=== PATIENT | female | born 1955 | race Caucasian/White ===

== ENCOUNTER 2022-01-06 09:00 | Outpatient (RCR) | payer MEDICARE, OTHER, SELFPAY | END 2022-01-06 10:23 | disposition home or self-care (01) | PROVIDERS: PCP Family Medicine; Visit Provider Family Medicine | DX: N81.10 Cystocele, unspecified (principal) | CPT/HCPCS: 97110; 97112; 97535 ==

== ENCOUNTER 2022-11-22 14:07 | Outpatient (CLI) | payer MEDICARE, OTHER, SELFPAY ==
--- NOTE | 2022-11-22 08:41 | W.ANESCHARGE ---
Anesthesia Charges Start Date/Time Anesthesia Start Date: 11/22/22 Anesthesia Start Time: 15:04 Stop Date/Time Anesthesia Stop Date: 11/22/22 Anesthesia Stop Time: 15:27
--- NOTE | 2022-11-22 15:30 | W.ANESCHARGE ---
Anesthesia Charges Start Date/Time Anesthesia Start Date: 11/22/22 Anesthesia Start Time: 15:04 Stop Date/Time Anesthesia Stop Date: 11/22/22 Anesthesia Stop Time: 15:27
== END 2022-11-22 14:08 | disposition home or self-care (01) ==
LOC: OP CLINIC 14:07
PROVIDERS: PCP Physician Assistant Medical; Visit Provider Internal Medicine Gastroenterology
DX: Z12.11 Encounter for screening for malignant neoplasm of colon (principal); K57.30 Diverticulosis of large intestine without perforation or abscess without bleeding; Z86.010 Personal history of colon polyps
CPT/HCPCS: 00811; 00812; 45378; J2704

== ENCOUNTER 2022-11-29 09:15 | Outpatient (RCR) | payer MEDICARE, OTHER, SELFPAY ==
--- NOTE | 2022-09-22 12:47 | PT.OPEX ---
PT [facility] PT [facility] Outpatient Eval Start: 09/21/22 09:04 Freq: Status: Active Protocol: Document 09/21/22 08:45 YAYO (Rec: 09/22/22 12:46 YAYO [id number]) E-signed By Mary Jo Archer PT Physical Therapy Outpatient Evaluation Insurance Information Recert Due Date 12/14/22 Insurance Name Medicare B,[employer] [facility] LUMBAR HERNIATED DISC M51.26 Treating Diagnosis RIGHT GLUT PAIN M76.01 SCIATICA M54[address] BEAR VO Subjective Subjective PATIENT ARRIVES TODAY STATING, I HAD TO LAY DOWN TO GET HERE B/C I CAN'T SIT AT ALL WITHOUT A KNIFE STABBING ME IN THE BUTT. PATIENT DENIES ANY FALLS OR PREVIOUS TRAUMA. SHE REPORTS REACHING TO PLUG SOMETHING INTO AN OUTLET AND EXPERIENCING IMMEDIATE PAIN. SHE ALSO REPORTS HAVING HAD A SIMILAR ISSUE ROUGHLY 8 YRS AGO AND UNDERWENT AN EXTENSION PROGRAM TO RESOLVE HER SYMPTOMS TAKING ~3 MO. Pain Comments 3 STDG/LYING PRONE->8-10/10 WITH SITTING Date of Last Physician Visit 09/20/22 Current Work Status [employer] Occupation [employer]-> CG AT THE[facility] Preferred Name CARE[employer] Precautions Therapy Limitations/Systems Review Not Limited Objective Other/Pertinent Objective Posture Assessment: DECREASED LORDOTIC CURVATURE/RIGID POSTURING LUMBAR ROM Flexion: MID THIGH W/8/10 PAIN repeated flexion: UNABLE Extension: WFL UNREMARKABLE repeated ext: UNREMARKABLE Right Sidebend: WFL INCREASED DISCOMFORT Left Sidebend: WFL UNREMARKABLE LE MMT :WFL Hip flexion: R 4/5, LEFT 4/5 Hip Extension: RIGHT 4-/5 LEFT 4-/5 (MEASURED IN PRONE) Hip abduction: R/L 4/5 MEASURED STDG knee extension: R/L 4/5 Knee Flexion: R/L 4/5 Dorsiflexion/heel walk: UNREMARKABLE Plantarflexion/toe walk: UNREMARKABLE Great Toe Extension: R/L UNREMARKABLE JOINT MOBILITY/PALPATION: ASSESSED IN PRONE. NO GROSS HYPOMOBILITY SPECIAL TESTS Straight leg raise: R/L (-) Crossed straight leg raise: R/ L (-) Slump test: UNABLE TO ASSESS D /T POSITIONAL PAIN Quadrant test: UNABLE TO ASSESS D/T POSITIONAL PAIN SI/HIP tests: JOSE: (+) R/L FADIR (-) R/L SCOUR (-) R/L Gillet Test: (-) R/L Standing forward bend Test: UNABLE D/T PAIN Gapping and Compression test: UNREMARKABLE TX: PRONE LYING ON 2 PILLOWS UNDER PELVIS PRONE LYING 1 PILLOW UNDER PELVIS X 1MIN PRONE LYING 2 PILLOWS UNDER CHEST X 1MIN PRONE FLAT BLE ALT LE LIFTS X 10 HOLD 3 SEC STDG TRUNK EXT X 10 HOLD 2-3 SEC Assessment Assessment/Impression PATIENT IS A [address] VO REFERRED TO PHYSICAL THERAPY FOLLOWING AND ACUTE BOUT OF LUMBAR RADICULOPATHY THAT IS CONSISTENT WITH THE S/ S OF A HERNIATED DISC. SHE HAS A LIMITED PMHX INCLUDING HYPOTHYROIDISM OSTEOPOROSIS, ASTHMA AND H/O UNCOMPLICATED HNP ~8YRS AGO. SHE LIVES WITH HER SPOUSE IN A 2 STORY HOME WITH NO STEPS TO ENTER BUT >10 STEPS TO ACCESS HER BEDROOM WITH A RAILING. 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 SHE REPORTS REACHING ABOUT 3 WEEKS AGO TO PLUG IN AN OUTLET AND EXPERIENCING IMMEDIATE PAIN IN HER RIGHT GLUTEAL MUSCLE IF SOMETHING WERE STABBING HER WITH A KNIFE. TODAY'S EVALUATION DID NOT FOLLOW THE TYPICAL PRESENTATION OF A HERNIATED DISC WITH NERVE ROOT INVOLVEMENT NOTING PTT AT THE [facility]IGIN AND JUST TO THE RIGHT THE SCIATIC NERVE PASSES. SHE DOES NOT PRESENT WITH RADICULOPATHY TODAY AND I AM UNABLE TO PROVOCATE THE SYMPTOMS THROUGH ANYTHING OTHER THAN DEEP PALPATION AND SITTING. SHE IS UNABLE TO SIT WITHOUT SHIFTING SIGNIFICANTLY TO HER LEFT SIDE AND THEN IT' S STILL QUITE DIFFICULT SHE PREFERS LYING PRONE>SUPINE. SHE REPORTS RESPONDING WELL TO THE SAMMY EXTENSION APPROACH 8 YRS AGO AND DOES HAS BEEN PERFORMING WHAT SHE CAN RECALL SINCE THE INITIAL INCIDENT. SHE DENIES ANY PREVIOUS TRAUMA AND HAS AN MRI SCHEDULED ON TUESDAY MORNING PRIOR TO HER 1PM PHYSICAL THERAPY FOLLOW UP VISIT. WE WENT THROUGH THE PRONE SAMMY PROGRESSION WITH A WRITTEN HEP PROVIDED FOR HER TO CONTINUE BUT THE EXT, ALBEIT DID NOT CHANGE THE SYMPTOMS, SHE DID VERBALIZE THAT SHE FELT GOOD DURING THE PROGRESSION. AT THE CONCLUSION OF THE VISIT, WE TRIED ONCE MORE TO BUILD TOLERANCE TO SITTING USING A PILLOW BUT THIS WAS NOT SUSTAINABLE. WE WILL SEE IF, THROUGH THE REPEATED UNLOADING AND ATTEMPTS TO INFLUENCE THE SYMPTOMS THROUGH EXTENSION FOCUSED EXERCISES, WE CAN PROGRESS HER TO SUPINE OR SEATED WORK. PATIENT VERBALIZED UNDERSTANDING TO ALL SKILLED INSTRUCTION AND AGREEABLE TO POC AND FREQ. SHE IS APPROPRIATE FOR SKILLED PHYSICAL THERAPY TO ADDRESS HER SYMPTOM MGMT, CORE AND BLE STABILIZATION AND STRENGTHENING, WELL FUNCTIONAL MOBILITY Plan of Care Rehabilitation Potential Fair Physical Therapy Goals 1. PATIENT WILL BE IMPROVE HER TOLERANCE FOR SITTING FROM UNABLE TO 10 MIN IN 4-6 WEEKS. 2. PATIENT WILL IMPROVE HER BLE FROM 4- TO 4/5 GLOBALLY TO 4+/5 IN 4/6 WEEKS. 3. PATIENT WILL BE ABLE TO TOLERATE IMPROVE BOTH HER SYMPTOMS TO <3/10 WITH FUNCTIONAL MOBILITY AND TOLERANCE FOR STDG ACTIVITIES IN ORDER FOR HER TO RETURN TO HER JEWELRY CONSULTANT POSITION CG FOR AN ENTIRE SHIFT IN 4-6 WEEKS. 4. PATIENT WILL BE INDEPENDENT WITH HER HEP AND PROGRESSION IN 6-8 WEEKS. Coordination/Communication With Referral Source Treatment Plan/Direct Interventions Gait Training,Heat,Ice/Cold/ Vasopneumatic,Joint Mobilization,Manual Therapy, Therapeutic Activities, Therapeutic Exercises Frequency/Duration 1-2X/WK FOR 6-8 WEEKS Patient Will Be Discharged From Therapy Completion of LTG(s), Independently Progressing Evaluation Billing Untimed Code Treatment Minutes 30 PT Eval No Charge No Complexity High Certification Information Initial Certification Date 09/21/22 Ending Certification Date 12/14/22 Provider Signature Shows Agreement With POC & Medical Necessity Physician Signature & Date Requested Please Sign/Date Here Physician Comment/Change : Physician NPI Number #
== END 2023-03-29 23:59 | disposition home or self-care (01) ==
PROVIDERS: PCP Physician Assistant Medical; Visit Provider Family Medicine
DX: M51.26 Other intervertebral disc displacement, lumbar region (principal); M76.01 Gluteal tendinitis, right hip; M54.30 Sciatica, unspecified side; Z51.89 Encounter for other specified aftercare
CPT/HCPCS: 97110; 97140; 97163

== ENCOUNTER 2023-12-27 07:30 | Outpatient (RCR) | payer MEDICARE, OTHER, SELFPAY | END 2024-04-25 23:59 | disposition home or self-care (01) | PROVIDERS: PCP Physician Assistant Medical; Visit Provider Student in an Organized Health Care Education/Training Program | DX: S39.012A Strain of muscle, fascia and tendon of lower back, initial encounter (principal); R53.1 Weakness; Z51.89 Encounter for other specified aftercare | CPT/HCPCS: 97110; 97140; 97162 ==

== ENCOUNTER 2024-05-26 09:16 | Emergency (ER) | payer MEDICARE, OTHER, SELFPAY ==
--- OUTSIDE RECORDS SUMMARY | 2024-05-26 09:18 | XMS_ITS | Continuity of Care Document ---
Author Name [facility] Address Unknown Organization Unknown Address Unknown Procedures FILTER APPLIED:Only known Procedures with Onset Date within the last 5 years Procedure Date Procedure Provider Additional Inform ation Status MANUAL THERAPY 1/> REGIONS (62233) Completed THERAPEUTIC EXERCISES (48646) Completed PT EVAL HIGH COMPLEX 45 MIN (07710) Completed Encounters FILTER APPLIED:Only known Encounters with Admission Date within the last 5 years Encounter Location Admission Discharge Billing Code [facility]
--- OUTSIDE RECORDS SUMMARY | 2024-05-26 09:19 | XMS_ITS | Clinical Summary ---
Author Organization [facility] Address [address] [place] [address] Care Team Providers Care Rack Worker Name Role Phone Ginger Chow PA-C Primary Care Provider [phone] Source Comments You are receiving this document as you are listed as the primary care provider,follow-up provider, or the patient has been referred to you for consultation.This is in compliance with the Medicare and[facility] EHR Incentive Program,which states Providers who transition their patient to another setting of careor provider of care or refers their patient to another provider of care shouldprovide summary care record for each transition of care or referral. [facility] Medications No known medications Active Problems Problem Noted Date Diagnosed Date Mechanical low back pain 08/23/2017 Resolved Problems Problem Noted Date Diagnosed Date Resolved Date Low back pain 02/03/2017 08/23/2017 Social History Tobacco Use Types Packs/Day Years Used Date Smoking Tobacco: Never Assessed Sex and Gender Information Value Date Recorded Sex Assigned at Not on file Gender Identity Not on file Sexual Orientation Not on file Plan of Treatment Health Maintenance Due Date Last Done Comments Colon Cancer Screening Plan Due 1955 Hep C Screening (Preventive Services) 1955 Medicare Annual Wellness Visit 1955 Mammogram 1955 DTaP/Tdap/Td (1 - Tdap) 1973 Cholesterol 08/10/1999 Zoster/Shingles (1 of 2) 2004 Dexa 08/10/2019 Pneumococcal 65+ Yrs (1 - PCV) 08/10/2019 COVID-19 Vaccine (3 - 2023-2 5 season) 2024 07/16/2020, 06/18/2020 Influenza (#1) 2024 02/19/2008, 02/27/2007 RSV (1 - 1-dose 75+ series) 2029 HepA Aged Out No longer eligi ble based on patient's age to complete this topic HepB Aged Out No longer eligi ble based on patient's age to complete this topic Hib Aged Out No longer eligi ble based on patient's age to complete this topic IPV (Polio) Aged Out No longer eligi ble based on patient's age to complete this topic MCV4 Aged Out No longer eligi ble based on patient's age to complete this topic Care Teams Rack Worker Relationship Specialty Start Date End Date Ginger Chow PA-C [address] [place] [address] PCP - General Physician Business Services Manager 01/17/17
--- OUTSIDE RECORDS SUMMARY | 2024-05-26 09:19 | XMS_ITS | Clinical Summary ---
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 15 Tablet 4 Active fluticasone propion-salmeteroL (Advair Diskus) 250-50 mcg/Dose diskus inhalerIndications :Moderate persistent asthma with exacerbation Inhale 1 Puff by mouth two times daily. 60 Each 4 Active albuterol HFA (PRO-AIR; VENTOLIN; PROVENTIL) 90 mcg/actuation inhalerIndications :Asthma, acute INHALE 1-2 PUFFS BY MOUTH EVERY 4 HOURS NEEDED 8.5 Each 5 4 Active levothyroxine (SYNTHROID) 75 mcg tabletIndications: Hypothyroidism, unspecified type Take 1 Tablet (75 mcg) by mouth before breakfast. Take 6 days a week. 90 Tablet 4 Active azithromycin (Zithromax Z-Javi) 250 mg tabletIndications: Acute non-recurrent frontal sinusitis Take 500 mg today and then 250 mg days 2-5 6 Tablet 5 Active meloxicam (MOBIC) 7.5 mg tabletIndications: Primary osteoarthritis of right hip Take 1 Tablet (7.5 mg) by mouth once daily. 90 Tablet 12/05/15/19 25 Discontinu ed(*Patien t states no longer taking) Active Problems Problem Noted Date Diagnosed Date Macrocytosis without anemia 08/01/2023 Anxiety 08/01/2023 Lumbar radiculopathy 11/10/2022 Depression, major, single episode, severe 2019 Mechanical low back pain 08/23/2017 Lumbar herniated disc 05/09/2014 Overview (09/20/2022): Herniated Disc Left Side L1 Lichen sclerosus 05/04/2011 Unspecified asthma(493.90) 02/12/2008 Unspecified hypothyroidism 12/05/2007 Encounters Date Type Department Care Team Description 05/15/2024 8:25 AM SEMICONDUCTOR WAFERS TESTER Office Visit [address] [address] Sully Barnes MD Throat Problem (Woke up with a sore throat on Tuesday. Has phelm and nasal congestion. Yellow in color./Has asthma and feels a little short of breath. ) 05/15/2024 Travel 04/16/2024 1:30 PM SEMICONDUCTOR WAFERS TESTER Ancillary Procedure [address] [address] 04/16/2024 1:00 PM SEMICONDUCTOR WAFERS TESTER Office Visit [address] [address] Ginger Chow PA Leg Pain/problem (Pain is at very top of R leg- started yesterday while sitting on floor) 04/16/2024 Travel 03/14/2024 9:10 AM SEMICONDUCTOR WAFERS TESTER Office Visit [address] [address] Ginger Chow PA Medication Management (Sythroid - ); Results (Bone density results) 03/14/2024 Travel 03/14/[address] [address] Ginger Chow PA Refill Request (Levothyroxine) 03/12/[address] [address] Ginger Chow PA Refill Request (LEVOTHYROXINE 50MCG TABLET) from Last 3 Months Immunizations Name Administration Dates Next Due COVID-19 vaccine (Moderna 100mcg/0.5mL) DELANO BYRD 07/16/2020,06/18/2020 Influenza A (H1N1), Inactivated (Age >=3 Years) 05/07/2009 Influenza, IIV3 (Age >=3 years) 02/19/2008,02/27 Family History Medical History Relation Name Comments Heart Disease Brother 1 Good Health Brother 2 Good Health Brother 3 Brain Aneurysm Daughter surgery x 4 Heart Disease Father Heart Disease Mother Good Health Sister Drug Abuse Son Cancer-breast No Family History Cancer-ovarian No Family History Relation Name Status Comments Brother 1 Brother 2 Brother 3 Daughter Father Mother Sister Son Social History Tobacco Use Types Packs/Day Years Used Date Smoking Tobacco: Never Smokeless Tobacco: Never Tobacco Cessation:Counseling Given: Yes Alcohol Use Standard Drinks/Week Comments No 0 (1 standard drink = 0.6 oz pur e alcohol) PHQ-2 Answer Date Recorded PHQ-2 TOTAL SCORE 0 11/21/2023 Social Connections Answer Date Recorded Do you often feel lonely or isolated from those around you? 0 03/14/2024 Financial Resource Strain Answer Date R ecorded Difficulty of Paying Living Expenses 3 03/14/2024 Difficulty of Paying Living Expenses Not on file 03/14/2024 Food Insecurity Answer Date Recorded Do you worry your food will run out before you are able to buy more? 1 03/14/2024 Transportation Needs Answer Date Record ed Does lack of transportation keep you from medica l appointments? 1 03/14/2024 Does lack of transportation keep you from work, meetings or getting things that you need? 1 03/14/2024 Housing Stability Answer Date Recorded What is your housing situation today? 1 03/14/2024 Utilities Answer Date Recorded Do you have trouble paying f or utilities (for example, heat, electricity, water, phone)? 1 03/14/2024 Comments No Sex and Gender Information Value Date Recorded Sex Assigned at Not on file Legal Sex Female 5:26 AM SEMICONDUCTOR WAFERS TESTER Gender Identity Not on file Sexual Orientation Not on file Obstetrics History Last Filed Vital Signs Vital Sign Reading Time Taken Comments Blood Pressure 122/76 05/15/2024 8:27 AM SEMICONDUCTOR WAFERS TESTER Pulse 91 05/15/2024 8:27 AM SEMICONDUCTOR WAFERS TESTER Temperature 36.7 C (98.1 F) 05/15/2024 8:27 AM SEMICONDUCTOR WAFERS TESTER Respiratory Rate 18 11/10/2022 11:09 AM CDT Oxygen Saturation 100% 05/15/2024 8:27 AM SEMICONDUCTOR WAFERS TESTER Inhaled Oxygen Concentration - - Weight 51.7 kg (114 lb) 05/15/2024 8:27 AM SEMICONDUCTOR WAFERS TESTER Height 152 cm (4' 11.84) 11/21/2023 8:46 AM CDT Body Mass Index 22.38 11/21/2023 8:46 AM CDT Plan of Treatment Health Maintenance Due Date Last Done Comments Tdap 1965 Pneumococcal series for age 50+ (1 of 2 - PCV) 1973 Tetanus booster 1974 Zoster (shingles) series for age 50+ (1 of 2) 2004 RSV vaccine for adults or (1 - Risk 60-74 years 1-dose series) 2014 COVID-19 vaccine series ( season) 2024 03/23/2021, 07/16/2020, 06/18/2020 Influenza for age 65+ 01/08/2024 05/07/2009 , 02/19/2008, 02/27/2007 BMI (ht and wt on same day) for age 18+ 11/20/2024 11/21/2023, 11/24/2022, 11/10/2022, Additional history exists Depression screening for age 12+ 11/20/2024 11/21/2023, 11/26/2022, 11/24/2022, Additional history exists Medicare Wellness for age 65+ 11/21/2024, 11/24/2022, 09/14/2021 Mammogram for age 45-75 12/18/2024 12/19/19 24, 10/06/2021, 07/13/2011 Colonoscopy through age 75 11/23/202711/22, 11/22/2022, 11/22/2022, Additional history exists Lipids for age 45-75 11/20/2028 11/21/2023, 11/24/2022, 09/14/2021, Additional history exists Hepatitis C screening for ag e 18-79 Completed 09/14/2021 DEXA/DXA scan for age 65+ Completed 2023, 10/06/2021, 05/23/2015, Additional history exists Procedures Procedure Name Priority Date/Time Associated Diagnosis Comments XR HIP 1 VIEW W PELVIS RIGHT Routine 04/16/2024 1:49 PM SEMICONDUCTOR WAFERS TESTER Right groin pain TSH WITH REFLEX Routine 04/16/2024 1:36 PM SEMICONDUCTOR WAFERS TESTER Hypothyroidism, unspecified type T4,FREE Routine 03/14/2024 9:44 AM SEMICONDUCTOR WAFERS TESTER Hypothyroidism, unspecified type TSH Routine 03/14/2024 9:44 AM SEMICONDUCTOR WAFERS TESTER Hypothyroidism, unspecified type XR MAMMO BILAT SCREENING Routine 12/19/2023 9:30 AM CDT Routine adult health maintenance XR DXA BONE DENSITY 2 SITES AXIAL Routine 12/19/2023 8:41 AM CDT Osteoporosis, unspecified osteoporosis type, unspecified pathological fracture presence LIPID PANEL W REFLEX MEASURED LDL Routine 11/21/2023 9:30 AM CDT Screening cholesterol level COLONOSCOPY SCREENING Routine 11/22/2022 8:07 AM CDT History of colon polyps ANTI HCV Routine 09/14/2021 11:56 AM CDT Need for hepatitis C screening test from Last 3 Months or Most Recently Relevant to Health Maintenance Results * XR HIP 1 VIEW W PELVIS RIGHT (04/16/2024 1:49 PM SEMICONDUCTOR WAFERS TESTER) Anatomical Region Laterality Modality HIPS, HIPR, Pelvis Computed Radi ography 04/16/2024 3:10 PM SEMICONDUCTOR WAFERS TESTER Narrative 04/16/2024 3:10 PM SEMICONDUCTOR WAFERS TESTER For Patients: As a result of the Cures Act, medical imaging exams and procedure reports are released immediately into your electronic medical record. You may view this report before your referring provider. If you have questions, please contact your health care provider. Indication: Hip pain Technique: Pelvis and right hip 2 views Comparison: 03/08/2015 Findings: Degenerative spurring at both hips. No fracture. Intact pubic rami. Bone island within the right iliac bone. Left pelvic phleboliths. Impression: Degenerative joint disease right hip, not significantly changed. Dictated by Esteban Mason MD @ 04/16/2024 3:10:54 PM (Electronically Signed) Procedure Note Esteban Mason MD - 04/16/2024 For Patients: As a result of the Cures Act, medical imagingexams and procedure reports are released immediately into your electronicmedical record. You may view this report before your referring provider.If you have questions, please contact your health care provider. Indication: Hip pain Technique: Pelvis and right hip 2 views Comparison: 03/08/2015 Findings: Degenerative spurring at both hips. No fracture. Intact pubic rami. Boneisland within the right iliac bone. Left pelvic phleboliths. Impression: Degenerative joint disease right hip, not significantly changed. Dictated by Esteban Mason MD @ 04/16/2024 3:10:54 PM (Electronically Signed) Ginger SEXTON GENERAL IMAGING Final R esult * TSH WITH REFLEX (04/16/2024 1:36 PM SEMICONDUCTOR WAFERS TESTER) TSH W/REFLEX TO FT4 4.34 0.40 - 4.50 mIU/L [facility] Blood BLOOD SPECIMEN / Unknown 04/16/2024 1:36 PM SEMICONDUCTOR WAFERS TESTER 04/16/2024 1:36 PM SEMICONDUCTOR WAFERS TESTER Ginger SEXTON CHEMISTRY Final R esult [facility] [address] [place] [address], [place] [phone] [facility] [address] [place] [address] * (ABNORMAL) TSH (03/14/2024 9:44 AM SEMICONDUCTOR WAFERS TESTER) TSH 12.76(H) 0.40 - 4.50 mIU/L [facility] Blood BLOOD SPECIMEN / Unknown 03/14/2024 9:44 AM SEMICONDUCTOR WAFERS TESTER 03/14/2024 9:44 AM SEMICONDUCTOR WAFERS TESTER Ginger SEXTON CHEMISTRY Final R esult Performing Organization Address City/[facility]/ZIP Co de Phone Number [facility] [address] [place] [address], [place] [phone] [facility] [address] [place] [address] * T4,FREE (03/14/2024 9:44 AM SEMICONDUCTOR WAFERS TESTER) T4, FREE 1.1 0.8 - 1.8 ng/dL [facility] Blood BLOOD SPECIMEN / Unknown 03/14/2024 9:44 AM SEMICONDUCTOR WAFERS TESTER 03/14/2024 9:44 AM SEMICONDUCTOR WAFERS TESTER Ginger SEXTON CHEMISTRY Final R esult Performing Organization Address [facility] Co de Phone Number [facility] [address] [place] [address], [place] [phone] [facility] [address] [place] [address] * XR MAMMO BILAT SCREENING (12/19/2023 9:30 AM CDT) Anatomical Region Laterality Modality BREASTS, Breast Left, Breast Right Bilateral Mammography Impressions 12/19/2023 2:24 PM CDT There is no radiographic evidence for malignancy. Recommend annual mammograms. MAMMOGRAM ASSESSMENT: ACR 1 Negative PATIENTS: You will also receive a letter with your examination results in an easy to read format. If you have questions about your results, please contact your referring provider. Narrative 12/19/2023 2:24 PM CDT For Patients: As a result of the Cures Act, medical imaging exams and procedure reports are released immediately into your electronic medical record. You may view this report before your referring provider. If you have questions, please contact your health care provider. XR MAMMO BILAT SCREENING [[id number]] CLINICAL HISTORY: This is an asymptomatic 68 y.o. patient. INDICATION FOR EXAM: Mammogram Screening. TECHNIQUE: CC & MLO views were obtained. This study was evaluated with the assistance of Computer-Aided Detection. COMPARISON FILM: Yes 10/06/21 [facility] 07/13/11 [facility] FINDINGS: The breasts are heterogeneously dense, which may obscure small masses. There are no dominant masses, suspicious micro calcifications or areas of architectural distortion. us Ginger SEXTON MAMMO Final R esult * (ABNORMAL) XR DXA BONE DENSITY 2 SITES AXIAL (12/19/2023 8:41 AM CDT) Anatomical Region Laterality Modality Spine, HIPS, HIPL, HIPR Other Impressions 12/20/2023 3:13 PM CDT Osteoporosis. RECOMMENDATIONS: The National Osteoporosis Foundation recommends pharmacologic treatment for patients with T-scores of -2.5 or less, patients with prior history of fragility fractures, or patients with 10-year probability of greater than 3% at hips or greater than 20% of suffering major osteoporotic fractures. Recommend continued optimization of calcium and vitamin D intake through dietary means and/or supplementation and regular exercise. Consider pharmacologic therapy for osteoporosis. Follow-up bone density reading in 2 years if therapy initiated to assess therapeutic efficacy. Ginger Chow PA-C [facility] 12/20/2023 Narrative 12/20/2023 3:13 PM CDT For Patients: Results are automatically released to your [facility] ([email or web address]) account once available, in compliance with federal regulations. This means that you may see your results before your provider has had a chance to review them. Please allow 2-3 business days for your provider to comment on the results. XR DXA Bone Mineral Density (BMD) EXAM LOCATION: [address] [address] PATIENT NAME: Isa Barnes DATE OF : 1955 EXAM DATE: 12/19/2023 REQUESTING PROVIDER: Ginger Chow PA GENDER AT : female HEIGHT: 4' 11.84 (11/21/2023) WEIGHT: 113 lb 11.2 oz (11/21/2023) MENOPAUSAL STATUS: Postmenopausal RACE/ETHNICITY: White RISK FACTORS: Family History of Osteoporosis, Weight < 127 lbs., and White Race CURRENT MEDICATION FOR BONE LOSS: NONE INDICATION: Follow-up of existing osteoporosis and Post-Menopause COMPARISON DATE(S): 2021 DXA scans are compared to prior studies for a patient only when the two (or more) studies were performed on the same scanner. It is not possible to compare data generated on one scanner to data from another because there are not standards in DXA equipment. This applies even if the two scanners are made by the same petroleum inspector supervisor. PROCEDURE: Dual-energy x-ray absorptiometry performed with routine technique. Reporting is completed in the form of a T-score. The T-score represents the standard deviation from peak bone mass based on young healthy adult. A Z-score is used for diagnosis in premenopausal women, and for men under the age of 50. FINDINGS: RESULT LUMBAR SPINE L1 - L4 BMD: 0.873 g/cm2 T-Score: - 2.6 Z-Score: - 0.5 Change from prior in 2021: Decrease 1.6%. RESULTS FEMUR Left femoral neck BMD: 0.865 g/cm2 T-Score: - 1.2 Z-Score: + 0.7 Change from prior in 2021: Decrease 7.2%. Right femoral neck BMD: 0.985 g/cm2 T-Score: - 0.4 Z-Score: + 1.6 Change from prior in 2021: Increase 3.7%. Left hip BMD: 0.872 g/cm2 T-Score: - 1.1 Z-Score: + 0.7 Change from prior in 2021: Decrease 5.7%. Right hip BMD: 0.921 g/cm2 T-Score: - 0.7 Z-Score: + 1.1 Change from prior in 2021: Decrease 0.8%. WHO criteria: Normal: T-score at or above -1 SD Osteopenia: T-score between -1.1 and -2.4 SD Osteoporosis: T-score at or below -2.5 SD FRAX RISK CALCULATION (USED FOR OSTEOPENIA ONLY): 10-year probability of major osteoporotic fracture: 8.6%. 10-year probability of hip fracture: 1.0%. Ginger SEXTON DEXA Final R esult * (ABNORMAL) LIPID PANEL W REFLEX MEASURED LDL (11/21/2023 9:30 AM CDT) CHOLESTEROL,TOTAL 227(H) 100 - 199 mg/dL 11/21/2023 6:56 PM CDT [facility] Comment: Cholesterol, Total Reference Ranges Desirable <200 mg/dL Borderline 200-239 mg/dL High >=240 mg/dL TRIGLYCERIDES 99 <150 mg/dL 11/21/2023 6:56 PM CDT [facility] HDL CHOLESTEROL 71 >40 mg/dL 6:56 PM CDT [facility] NON-HDL CHOLESTEROL 156(H) <145 mg/dl 11/21/2023 6:56 PM CDT [facility] CHOL/HDL RATIO 3.20 <4.50 11/21/2023 6:56 PM CDT [facility] LDL CHOLESTEROL 136(H) <=130 mg/dL 11/21/2023 6:56 PM CDT [facility] VLDL CHOLESTEROL 20 <=30 mg/dL 11/21/2023 6:56 PM CDT [facility] PROVIDER ORDERED STATUS RANDOM 11/21/2023 6:56 PM CDT [facility] Blood BLOOD SPECIMEN / Unknown Venipuncture / Unknown 11/21/2023 9:30 AM CDT 11/21/2023 9:30 AM CDT Ginger SEXTON CHEMISTRY Final R esult [facility] [address] [place] [address], [place] * SCAN-COLONOSCOPY (11/22/2022 12:00 AM CDT) us Scanner OTHER Final Result * ANTI HCV (09/14/2021 11:56 AM CDT) HEPATITIS C ANTIBODY Non-React christopher Non-React christopher 09/14/2021 11:24 PM CDT [facility] Comment:Antibodies to HCV no t detected; does not exclude the possibility of exposure to HCV. Blood BLOOD SPECIMEN / Unknown Venipuncture / Unknown 09/14/2021 11:56 AM CDT 09/14/2021 11:57 AM CDT us Ginger SEXTON SEND OUTS Final R esult [facility] 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
--- OUTSIDE RECORDS SUMMARY | 2024-05-26 09:19 | XMS_ITS | Patient Health Record ---
Author Organization [facility], [facility] Address [address] [place] [address] Care Team Providers Care [employer] Name Role Phone Rusty RAYMUNDO, Xavier Unavailable [phone] Reason For Referral No Information Plan Of Treatment No Information Insurance Providers Payer Name Payer Address Payer Phone Subscriber Number Group Number Insured Name Patient Relationship to Insured Coverage Start Date Coverage End Date [employer] ([employer]) [address], [address] [place] [address] CameronIsa Self - patient is the insured [facility] [id number] [place] [address] [address] [place], [place] [id number] 0- Isa Barnes Self - patient is the insured 7
[2024-05-26 09:27] VITALS: BP 132/106; PULSE 106; RESP 20; TEMP 36.8; O2SAT 96; BMI 21.9
--- NOTE | 2024-05-26 09:36 | CRLHL7_ITS ---
For Patients: As a result of the Century Cures Act, medical imaging exams and procedure reports are released immediately into your electronic medical record. You may view this report before your referring provider. If you have questions, please contact your health care provider. INDICATION: Cough. COMPARISON: None. TECHNIQUE: Chest two-views. FINDINGS: Lungs are clear. No pleural effusions. No pneumothorax Normal cardiomediastinal silhouette. No osseous abnormalities. IMPRESSION: No acute findings. Dictated by Abner Tidwell MD @ 05/26/2024 10:02:12 AM (Electronically Signed)
--- NOTE | 2024-05-26 09:37 | ED.GENADULT ---
HPI - General Adult General Chief complaint: Cough Stated complaint: Poss pneumonia, tightness in chest, headache Time Seen by Provider: 05/26/24 09:32 History of Present Illness HPI narrative: Patient is a 68-year-old woman who comes in today with 24 hours of nonproductive cough general malaise body aches fatigue. She was treated for sinusitis approximately 10 days ago and made a full resolution of her sinus symptoms. She has not noticed any fever chills. She has had no chest pain no orthopnea no PND. She has had no sick exposures. She does have history of asthma and did do her nebulizer treatment of albuterol this morning and did take ibuprofen for headaches and body aches. Related Data Home Medications ?Medication ?Instructions ?Recorded ?Confirmed levothyroxine 75 mcg tablet 75 mcg PO QAM 09/18/22 05/26/24 Previous Rx's ?Medication ?Instructions ?Recorded albuterol sulfate 2.5 mg/3 mL 2.5 mg (3 mL) inhalation Q4-6H PRN 05/10/23 (0.083 %) solution for nebulization shortness of breath or wheezing #75 mL albuterol sulfate 90 mcg/actuation 2 puff inhalation Q4-6H PRN 05/10/23 aerosol inhaler shortness of breath or wheezing #6.7 grams oseltamivir 75 mg capsule (Tamiflu) 75 mg PO BID 5 days #10 caps 05/26/24 Allergies Allergy/AdvReac Type Severity Reaction Status Date / Time No Known Drug Allergies Allergy Verified 05/26/24 09:27 Review of Systems Status of ROS: Reports: 10 or more systems reviewed and unremarkable except as noted in History and below [facility] Medical History Symptomatic menopausal or female climacteric states ?N95.1 - Menopausal and female climacteric states (ICD-10) Shingles ?B02.9 - Zoster without complications (ICD-10) Lichen sclerosus ?L90.0 - Lichen sclerosus et atrophicus (ICD-10) Anxiety ?F41.9 - Anxiety disorder, unspecified (ICD-10) Depression, major, single episode, severe ?F32.2 - Major depressive disorder, single episode, severe without psychotic features (ICD-10) Lumbar radiculopathy ?M54.16 - Radiculopathy, lumbar region (ICD-10) Mechanical low back pain ?M54.59 - Other low back pain (ICD-10) Lumbar herniated disc ?M51.26 - Other intervertebral disc displacement, lumbar region (ICD-10) Macrocytosis without anemia ?D75.89 - Other specified diseases of blood and blood-forming organs (ICD-10) Unspecified hypothyroidism ?E03.9 - Hypothyroidism, unspecified (ICD-10) Surgical History H/O: hysterectomy ?Z90.710 - Acquired absence of both cervix and uterus (ICD-10) Social History Smoking Status: Never smoker Do you use any of these nicotine containing products: None Second hand tobacco smoke exposure: No How often do you have a drink containing alcohol: monthly or less AUDIT-C Alcohol total score: 1 Non-prescribed substance use: denies use service: No Exam Narrative: Exam Narrative: EXAM GENERAL: Patient appears comfortable and well. EYES: No scleral icterus. LYMPH: No supraclavicular or cervical lymphadenopathy. SKIN: Visible skin seen during exam normal or with benign process only. EXT: No dependent lower extremity pedal edema. HEART: Regular rate and rhythm with no murmurs, rubs, or gallops. LUNGS: Clear to auscultation bilaterally with no crackles or wheezes. ABD: Soft, non tender, non distended. PSYCH: Good eye contact, speech is not pressured. Const: Vital Signs, click to edit/add: Vital Signs - 24 hr 05/26/24 09:27 05/26/24 10:02 Temperature 98.2 F Pulse Rate 92 Pulse Rate [Pulse Oximeter] 106 H Respiratory Rate 20 16 Blood Pressure 122/77 Blood Pressure [Ri ght Upper Arm] 132/106 H Pulse Oximetry 96 96 Oxygen Delivery Me thod Room Air Room Air Course Course ED Course: Patient seen and examined. Triple swab CBC electrolytes chest x-ray pending. Vital Signs Vital signs: Initial Vital Signs Temperature 98.2 F 05/26/24 09:27 Temperature Source Temporal Artery Scan 05/26/24 09:27 Pulse Rate 106 H 05/26/24 09:27 Respiratory Rate 20 05/26/24 09:27 Blood Pressure 132/106 H 05/26/24 09:27 Blood Pressure Mean 114 H 05/26/24 09:27 Blood Pressure Position Sitting 05/26/24 09:27 Pulse Oximetry 96 05/26/24 09:27 Oxygen Delivery Method Room Air 05/26/24 09:27 Vital Signs Temperature 98.2 F 05/26/24 09:27 Pulse Rate 106 H 05/26/24 09:27 Respiratory Rate 20 05/26/24 09:27 Blood Pressure 132/106 H 05/26/24 09:27 Pulse Oximetry 96 05/26/24 09:27 Oxygen Delivery Method Room Air 05/26/24 09:27 Temperature 98.2 F 05/26/24 09:27 Pulse Rate 92 05/26/24 10:02 Respiratory Rate 16 05/26/24 10:02 Blood Pressure 122/77 05/26/24 10:02 Pulse Oximetry 96 05/26/24 10:02 Oxygen Delivery Method Room Air 05/26/24 10:02 Medical Decision Making [facility] Narrative Medical decision making narrative: PATIENT IS A 68-YEAR-OLD WOMAN WITH HISTORY OF ASTHMA WHO PRESENTS WITH NONPRODUCTIVE COUGH FEVER MALAISE AND BODY ACHES. SHE HAS A NEGATIVE CHEST X-RAY ELECTROLYTES AND CBC ARE LARGELY UNREMARKABLE BUT SHE DOES TEST POSITIVE FOR INFLUENZA A. THIS TIME WILL TREATED WITH TAMIFLU NEVER CONTINUE CURRENT MEDICATIONS. SHE WILL FOLLOW-UP WITH HER PRIMARY PHYSICIAN TRY TO ISOLATE UNTIL SHE FEELS BETTER. Lab Data Labs: Lab Results 05/26/24 05/26/24 Range/Units 09:20 09:56 WBC 4.37 L (4.50-11.00) K/uL RBC 3.62 L (4.00-5.20) m/uL Hgb 12.6 (12.0-16.0) gm/dL Hct 37.6 (33.0-51.0) % MCV 104 H (80-100) fL MCH 35 H (26-34) pg MCHC 34 (32-36) gm/dL RDW Coeff of Luis Daniel 13.6 (11.5-15.5) % Plt Count 212 (140-440) K/uL Neut % (Auto) 70.6 (42.0-72.0) % Lymph % (Auto) 10.8 L (20-44) % [place] % (Auto) 15.6 H (0.0-11.0) % Eos % (Auto) 2.1 (0.0-7.0) % Baso % (Auto) 0.9 (0.0-3.0) % Neut # (Auto) 3.10 (1.7-7.0) K/uL Lymph # (Auto) 0.50 L (0.90-2.90) K/uL [place] # (Auto) 0.70 (0.00-0.90) K/UL Eos # (Auto) 0.10 (0.00-0.50) K/uL Baso # (Auto) 0.00 (0.00-0.30) K/uL Abs Immat Gran (auto) 0.00 (0.00-0.30) K/uL Imm/Tot Granulo (auto) 0.0 % SARS-CoV-2 (PCR) Negative SARS-CoV-2 (Negative) Influenza Type A (PCR) POSITIVE PCR FLU A A (Negative) Influenza Type B (PCR) Negative PCR FLU B (Negative) RSV (PCR) Negative PCR RSV (Negative) Discharge Plan Discharge Clinical Impression: Influenza A Patient Disposition: Home, Self-Care Condition: Stable Instructions: Influenza (ED) Additional Instructions: Tamiflu as directed Tylenol Motrin Rest Fluids Follow-up with your doctor as needed. Activity Level: No Restrictions Discharge Diet: Regular Prescriptions: New oseltamivir [Tamiflu] 75 mg capsule 75 mg PO BID 5 Days Qty: 10 0RF No Action albuterol sulfate 90 mcg/actuation HFA aerosol inhaler 2 puff inhalation Q4-6H PRN (Reason: shortness of breath or wheezing) Qty: 6.7 0RF albuterol sulfate 2.5 mg /3 mL (0.083 %) solution for nebulization 2.5 mg inhalation Q4-6H PRN (Reason: shortness of breath or wheezing) Qty: 75 0RF levothyroxine 75 mcg tablet 75 mcg PO QAM Follow Up/Referrals: Ginger Chow PA-C [Primary Care Provider] - Stand Alone Forms: [facility] Info Instructions
[2024-05-26 10:02] VITALS: BP 122/77; PULSE 92; RESP 16; O2SAT 96
[2024-05-26 10:02] LABS: Basophils Percent Auto 0.9 % (0.0-3.0); Eosinophils Percent Auto 2.1 % (0.0-7.0); Hematocrit 37.6 % (33.0-51.0); Hemoglobin* 12.6 gm/dL (12.0-16.0); Lymphocytes Percent Auto 10.8 % (20-44); Mean Corpuscular HGB Conc 34 gm/dL (32-36); Mean Corpuscular Hemoglobin 35 pg (26-34); Mean Corpuscular Volume 104 fL (80-100); Monocytes Percent Auto 15.6 % (0.0-11.0); Neutrophils Percent Auto 70.6 % (42.0-72.0); Platelet Count* 212 K/uL (140-440); RDW Coefficient of Variation % 13.6 % (11.5-15.5); Red Blood Count 3.62 m/uL (4.00-5.20); White Blood Count* 4.37 K/uL (4.50-11.00)
[2024-05-26 10:05] LABS: Slide Review Reflex No
[2024-05-26 10:13] LABS: PCR FLU A POSITIVE PCR FLU A (Negative); PCR FLU B Negative PCR FLU B (Negative); PCR RSV Negative PCR RSV (Negative); SARS PCR* Negative SARS-CoV-2 (Negative)
[2024-05-26 10:15] LABS: Chloride* 102 mmol/L (96-114); Sodium* 134 mmol/L (135-149)
[2024-05-26 10:16] LABS: Potassium* 4.3 mmol/L (3.6-5.1)
[2024-05-26 10:18] LABS: Anion Gap 9 mEq/L (7-15); Carbon Dioxide* 23 mmol/L (20-32); Creatinine* 0.6 mg/dL (0.5-1.5); Est. Creatinine Clearance* 38.14; Estimated Glomerular Filt Rate 97 ml/min
[2024-05-26 10:19] LABS: Blood Urea Nitrogen* 12 mg/dL (7-30); Calcium* 9.3 mg/dL (8.4-10.6); Glucose* 116 mg/dL (60-115)
--- OUTSIDE RECORDS SUMMARY | 2024-05-26 10:25 | XMS_ITS | Clinical Summary ---
Author Organization [facility] Address [address] [place] [address] Care Team Providers Care Manager Economic Name Role Phone Ginger Chow PA-C Primary Care Provider [phone] Source Comments You are receiving this document as you are listed as the primary care provider,follow-up provider, or the patient has been referred to you for consultation.This is in compliance with the Medicare and[facility] System[facility] EHR Incentive Program,which states Providers who transition [...] age to complete this topic Care Teams Manager Economic Relationship Specialty Start Date End Date Ginger Chow PA-C [address] [place] [address] PCP - General Physician Vocational Nursing Instructor 01/17/17
--- OUTSIDE RECORDS SUMMARY | 2024-05-26 10:25 | XMS_ITS | Continuity of Care Document ---
Author Name [facility] User [email or web address] Address Unknown Organization Unknown Address Unknown Procedures FILTER APPLIED:Only known Procedures with Onset Date within the last 5 years Procedure Date Procedure Provider Additional Inform ation Status MANUAL THERAPY 1/> REGIONS (30421) Completed THERAPEUTIC EXERCISES (65669) Completed PT EVAL HIGH COMPLEX 45 MIN (58502) Completed Encounters FILTER APPLIED:Only known Encounters with Admission Date within the last 5 years Encounter Location Admission Discharge Billing Code Sand System Operator [facility]
--- OUTSIDE RECORDS SUMMARY | 2024-05-26 10:25 | XMS_ITS | Clinical Summary ---
Author Organization [facility] Address [place], [place] [address] Care Team Providers Care Licensed Investment Sales Assistant Name Role Phone Ginger Chow Primary Care [...] Department Care Team Description 05/15/2024 8:25 AM SUPERVISOR TYPESETTING Office Visit [address] [address] Sully Barnes MD Throat Problem (Woke up with a sore throat on Tuesday. Has phelm and nasal congestion. Yellow in color./Has asthma and feels a little short of breath. ) 05/15/2024 Travel 04/16/2024 1:30 PM SUPERVISOR TYPESETTING Ancillary Procedure [address] [address] 04/16/2024 1:00 PM SUPERVISOR TYPESETTING Office Visit [address] [address] Ginger Chow PA Leg Pain/problem (Pain is at very top of R leg- started yesterday while sitting on floor) 04/16/2024 Travel 03/14/2024 9:10 AM SUPERVISOR TYPESETTING Office Visit [address] [address] Ginger Chow PA Medication Management (Sythroid - ); Results (Bone density results) 03/14/2024 Travel 03/14/[address] [address] Ginger Chow PA Refill Request (Levothyroxine) 03/12/[address] [address] Ginger Chow PA Refill Request (LEVOTHYROXINE 50MCG [...] on file Legal Sex Female 5:26 AM SUPERVISOR TYPESETTING Gender Identity Not on file Sexual Orientation Not on file Obstetrics History Last Filed Vital Signs Vital Sign Reading Time Taken Comments Blood Pressure 122/76 05/15/2024 8:27 AM SUPERVISOR TYPESETTING Pulse 91 05/15/2024 8:27 AM SUPERVISOR TYPESETTING Temperature 36.7 C (98.1 F) 05/15/2024 8:27 AM SUPERVISOR TYPESETTING Respiratory Rate 18 11/10/2022 11:09 AM CDT Oxygen Saturation 100% 05/15/2024 8:27 AM SUPERVISOR TYPESETTING Inhaled Oxygen Concentration - - Weight 51.7 kg (114 lb) 05/15/2024 8:27 AM SUPERVISOR TYPESETTING Height 152 cm (4' 11.84) 11/21/2023 8:46 [...] W PELVIS RIGHT Routine 04/16/2024 1:49 PM SUPERVISOR TYPESETTING Right groin pain TSH WITH REFLEX Routine 04/16/2024 1:36 PM SUPERVISOR TYPESETTING Hypothyroidism, unspecified type T4,FREE Routine 03/14/2024 9:44 AM SUPERVISOR TYPESETTING Hypothyroidism, unspecified type TSH Routine 03/14/2024 9:44 AM SUPERVISOR TYPESETTING Hypothyroidism, unspecified type XR MAMMO BILAT SCREENING [...] VIEW W PELVIS RIGHT (04/16/2024 1:49 PM SUPERVISOR TYPESETTING) Anatomical Region Laterality Modality HIPS, HIPR, Pelvis Computed Radi ography 04/16/2024 3:10 PM SUPERVISOR TYPESETTING Narrative 04/16/2024 3:10 PM SUPERVISOR TYPESETTING For Patients: As a result of the [...] * TSH WITH REFLEX (04/16/2024 1:36 PM SUPERVISOR TYPESETTING) TSH W/REFLEX TO FT4 4.34 0.40 - 4.50 mIU/L [facility] Blood BLOOD SPECIMEN / Unknown 04/16/2024 1:36 PM SUPERVISOR TYPESETTING 04/16/2024 1:36 PM SUPERVISOR TYPESETTING Ginger SEXTON CHEMISTRY Final R esult [employer] [facility] [address] [place] [address], [place] [phone] [facility] [address] [place] [address] * (ABNORMAL) TSH (03/14/2024 9:44 AM SUPERVISOR TYPESETTING) TSH 12.76(H) 0.40 - 4.50 mIU/L [facility] Blood BLOOD SPECIMEN / Unknown 03/14/2024 9:44 AM SUPERVISOR TYPESETTING 03/14/2024 9:44 AM SUPERVISOR TYPESETTING Ginger SEXTON CHEMISTRY Final R esult Performing Organization Address City/[facility]/ZIP Co de Phone Number [facility] [address] [place] [address], [place] [phone] [facility] [address] [place] [address] * T4,FREE (03/14/2024 9:44 AM SUPERVISOR TYPESETTING) T4, FREE 1.1 0.8 - 1.8 ng/dL [facility] Blood BLOOD SPECIMEN / Unknown 03/14/2024 9:44 AM SUPERVISOR TYPESETTING 03/14/2024 9:44 AM SUPERVISOR TYPESETTING Ginger SEXTON CHEMISTRY Final R esult Performing Organization Address [facility] Co de Phone Number [facility] [address] [place] [address], [place] [phone] [facility] [address] [place] [address] * XR MAMMO BILAT SCREENING (12/19/2023 9:30 [...] health care provider. XR MAMMO BILAT SCREENING [084308] CLINICAL HISTORY: This is an asymptomatic 68 y.o. patient. INDICATION FOR EXAM: Mammogram Screening. TECHNIQUE: CC & MLO views were obtained. This study was evaluated with the assistance of Computer-Aided Detection. COMPARISON FILM: Yes 10/06/21 [facility] 07/13/11 [facility] FINDINGS: The breasts are heterogeneously [...] to assess therapeutic efficacy. Ginger Chow PA-C [facility] 12/20/2023 Narrative 12/20/2023 3:13 PM CDT For Patients: Results are automatically released to your [facility] ([employer]) account once available, in compliance with federal regulations. This means that you may see your results before your provider has had a chance to review them. Please allow 2-3 business days for your provider to comment on the results. XR DXA Bone Mineral Density (BMD) EXAM LOCATION: [address] [address] PATIENT NAME: Isa Barnes DATE OF : [...] two scanners are made by the same product mgmt dev manager. PROCEDURE: Dual-energy x-ray absorptiometry performed with routine [...] - 199 mg/dL 11/21/2023 6:56 PM CDT [facility] Comment: Cholesterol, Total Reference Ranges Desirable <200 mg/dL Borderline 200-239 mg/dL High >=240 mg/dL TRIGLYCERIDES 99 <150 mg/dL 11/21/2023 6:56 PM CDT [facility] HDL CHOLESTEROL 71 >40 mg/dL 6:56 PM CDT [facility] NON-HDL CHOLESTEROL 156(H) <145 mg/dl 11/21/2023 6:56 PM CDT [facility] CHOL/HDL RATIO 3.20 <4.50 11/21/2023 6:56 PM CDT [facility] LDL CHOLESTEROL 136(H) <=130 mg/dL 11/21/2023 6:56 PM CDT [facility] VLDL CHOLESTEROL 20 <=30 mg/dL 11/21/2023 6:56 PM CDT [facility] PROVIDER ORDERED STATUS RANDOM 11/21/2023 6:56 PM CDT [facility] Blood BLOOD SPECIMEN / Unknown Venipuncture / Unknown 11/21/2023 9:30 AM CDT 11/21/2023 9:30 AM CDT Ginger SEXTON CHEMISTRY Final R esult [facility] [address] [place] [address], [place] * SCAN-COLONOSCOPY (11/22/2022 12:00 AM CDT) us Scanner OTHER Final Result * ANTI HCV (09/14/2021 11:56 AM CDT) HEPATITIS C ANTIBODY Non-React christopher Non-React christopher 09/14/2021 11:24 PM CDT [facility] Comment:Antibodies to HCV no t detected; does not exclude the possibility of exposure to HCV. Blood BLOOD SPECIMEN / Unknown Venipuncture / Unknown 09/14/2021 11:56 AM CDT 09/14/2021 11:57 AM CDT us Ginger SEXTON SEND OUTS Final R esult [facility] [address] [place] [address], [place] from Last 3 Months or Most Recently Relevant to Health Maintenance Insurance [employer] ONLY [facility] Care Teams Licensed Investment Sales Assistant Relationship Specialty Start Date End Date Ginger [place] [address] [address] [place] [address] PCP - General Family Practice 11/08/12
== END 2024-05-26 10:47 | disposition home or self-care (01) ==
PROVIDERS: Emergency Provider Internal Medicine; PCP Physician Assistant Medical
DX: J10.1 Influenza due to other identified influenza virus with other respiratory manifestations (principal)
CPT/HCPCS: 36415; 71046; 80048; 85025; 87631; 99283; 99284

== ENCOUNTER 2024-06-04 12:45 | Emergency (ER) | payer MEDICARE, OTHER, SELFPAY ==
--- OUTSIDE RECORDS SUMMARY | 2024-06-04 12:48 | XMS_ITS | Patient Health Record ---
Author Organization [facility], [facility] Address [address] [place] [address] Care Team Providers Care Candy Bar Attendant Name Role Phone Rusty RAYMUNDO, Xavier Unavailable [phone] Reason For Referral No Information Plan Of Treatment No Information Insurance Providers Payer Name Payer Address Payer Phone Subscriber Number Group Number Insured Name Patient Relationship to Insured Coverage Start Date Coverage End Date [employer] ([employer]) [address], [address] [place] [address] [phone] CameronIsa Self - patient is the insured [facility] [id number] [place] [address] [address] [place], [place] [id number] 0- Isa Barnes Self - patient is the insured 7
--- OUTSIDE RECORDS SUMMARY | 2024-06-04 12:48 | XMS_ITS | Clinical Summary ---
Author Organization [facility] Address [place], [place] [address] Care Team Providers Care Dial Polisher Name Role Phone Ginger Chow Primary Care [...] by mouth once daily. 90 Tablet 12/05/15/19 Discontinu ed(*Patien t states no longer taking) Active Problems Problem Noted Date Diagnosed Date Macrocytosis without anemia 08/01/2023 Anxiety 08/01/2023 Lumbar radiculopathy 11/10/2022 Depression, major, single episode, severe 2019 Mechanical low back pain 08/23/2017 Lumbar herniated disc 05/09/2014 Overview (09/20/2022): Herniated Disc Left Side L1 Lichen sclerosus 05/04/2011 Unspecified asthma(493.90) 02/12/2008 Unspecified hypothyroidism 12/05/2007 Encounters Date Type Department Care Team Description 06/04/2024 Nurse Triage [facility] Nurse Triage Ginger Chow PA Breathing Problem 05/26/2024 Orders Only [facility] Scanner 1 scan: (1-Ord) SAN[facility], XR CHEST 2V, 05/26/2024 05/15/2024 8:25 AM IGNITION SPECIALIST Office Visit [facility] [address] [place] [address] Sully Barnes MD Throat Problem (Woke up with a sore throat on Tuesday. Has phelm and nasal congestion. Yellow in color./Has asthma and feels a little short of breath. ) 05/15/2024 Travel 04/16/2024 1:30 PM IGNITION SPECIALIST Ancillary Procedure [facility] [address] [place] [address] 04/16/2024 1:00 PM IGNITION SPECIALIST Office Visit [facility] [address] [place] [address] Ginger Chow PA Leg Pain/problem (Pain is at very top of R leg- started yesterday while sitting on floor) 04/16/2024 Travel 03/14/2024 9:10 AM IGNITION SPECIALIST Office Visit [facility] [address] [place] [address] Ginger Chow PA Medication Management (Sythroid - ); Results (Bone density results) 03/14/2024 Travel 03/14/2024 Refill [facility] [address] [place] [address] Ginger Chow PA Refill Request (Levothyroxine) 03/12/2024 Refill [facility] [address] [place] [address] Ginger Chow PA Refill Request (LEVOTHYROXINE 50MCG [...] on file Legal Sex Female 5:26 AM IGNITION SPECIALIST Gender Identity Not on file Sexual Orientation Not on file Obstetrics History Last Filed Vital Signs Vital Sign Reading Time Taken Comments Blood Pressure 122/76 05/15/2024 8:27 AM IGNITION SPECIALIST Pulse 91 05/15/2024 8:27 AM IGNITION SPECIALIST Temperature 36.7 C (98.1 F) 05/15/2024 8:27 AM IGNITION SPECIALIST Respiratory Rate 18 11/10/2022 11:09 AM CDT Oxygen Saturation 100% 05/15/2024 8:27 AM IGNITION SPECIALIST Inhaled Oxygen Concentration - - Weight 51.7 kg (114 lb) 05/15/2024 8:27 AM IGNITION SPECIALIST Height 152 cm (4' 11.84) 11/21/2023 8:46 AM CDT Body Mass Index 22.38 11/21/2023 8:46 AM CDT Plan of Treatment Upcoming Encounters Date Type Department Care Team (Late st Contact Info) Description 06/11/2024 2:40 PM IGNITION SPECIALIST Office Visit [facility] [address] [place] [address] Ginger Chow PA [address] [place] [address] Health Maintenance Due Date Last Done Comments [...] Procedure Name Priority Date/Time Associated Diagnosis Comments SCAN-RADIOLOGY REPORT 05/26/2024 12:00 AM IGNITION SPECIALIST XR HIP 1 VIEW W PELVIS RIGHT Routine 04/16/2024 1:49 PM IGNITION SPECIALIST Right groin pain TSH WITH REFLEX Routine 04/16/2024 1:36 PM IGNITION SPECIALIST Hypothyroidism, unspecified type T4,FREE Routine 03/14/2024 9:44 AM IGNITION SPECIALIST Hypothyroidism, unspecified type TSH Routine 03/14/2024 9:44 AM IGNITION SPECIALIST Hypothyroidism, unspecified type XR MAMMO BILAT SCREENING [...] Recently Relevant to Health Maintenance Results * SCAN-RADIOLOGY REPORT (05/26/2024 12:00 AM IGNITION SPECIALIST) Anatomical Region Laterality Modality Other us Scanner OTHER Final Result * XR HIP 1 VIEW W PELVIS RIGHT (04/16/2024 1:49 PM IGNITION SPECIALIST) Anatomical Region Laterality Modality HIPS, HIPR, Pelvis Computed Radi ography 04/16/2024 3:10 PM IGNITION SPECIALIST Narrative 04/16/2024 3:10 PM IGNITION SPECIALIST For Patients: As a result of the [...] * TSH WITH REFLEX (04/16/2024 1:36 PM IGNITION SPECIALIST) Pathologist [facility] TSH W/REFLEX TO FT4 4.34 0.40 - 4.50 mIU/L [facility] Blood BLOOD SPECIMEN / Unknown 04/16/2024 1:36 PM IGNITION SPECIALIST 04/16/2024 1:36 PM IGNITION SPECIALIST Ginger SEXTON CHEMISTRY Final R esult [facility] [address] [place] [address], [facility] [address] [facility] [place] [address] * (ABNORMAL) TSH (03/14/2024 9:44 AM IGNITION SPECIALIST) [facility] TSH 12.76(H) 0.40 - 4.50 mIU/L [facility] Blood BLOOD SPECIMEN / Unknown 03/14/2024 9:44 AM IGNITION SPECIALIST 03/14/2024 9:44 AM IGNITION SPECIALIST Ginger SEXTON CHEMISTRY Final R esult [facility] [address] [facility] [place] [address], [facility] [address] [facility] [place] [address] * T4,FREE (03/14/2024 9:44 AM IGNITION SPECIALIST) Pathologist [facility] T4, FREE 1.1 0.8 - 1.8 ng/dL [facility] Blood BLOOD SPECIMEN / Unknown 03/14/2024 9:44 AM IGNITION SPECIALIST 03/14/2024 9:44 AM IGNITION SPECIALIST Ginger SEXTON CHEMISTRY Final R esult [facility] [address] [place] [address], [facility] [address] [place] [address] * XR MAMMO BILAT SCREENING (12/19/2023 9:30 [...] health care provider. XR MAMMO BILAT SCREENING [[id number]] CLINICAL HISTORY: This is an asymptomatic 68 y.o. patient. INDICATION FOR EXAM: Mammogram Screening. TECHNIQUE: CC & MLO views were obtained. This study was evaluated with the assistance of Computer-Aided Detection. COMPARISON FILM: Yes 10/06/21 [facility] 07/13/11 [facility] FINDINGS: The breasts are heterogeneously dense, which may obscure small masses. There are no dominant masses, suspicious micro calcifications or areas of architectural distortion. Ginger SEXTON MAMMO Final R esult * [...] to assess therapeutic efficacy. Ginger Chow PA-C [facility] 12/20/2023 Narrative 12/20/2023 3:13 PM CDT For Patients: Results are automatically released to your [facility] ([facility]) account once available, in compliance with federal regulations. This means that you may see your results before your provider has had a chance to review them. Please allow 2-3 business days for your provider to comment on the results. XR DXA Bone Mineral Density (BMD) EXAM LOCATION: [address] [address] PATIENT NAME: Isa Barnes DATE OF : [...] two scanners are made by the same adding machine servicer. PROCEDURE: Dual-energy x-ray absorptiometry performed with routine [...] REFLEX MEASURED LDL (11/21/2023 9:30 AM CDT) [facility] CHOLESTEROL,TOTAL 227(H) 100 - 199 mg/dL 11/21/2023 6:56 PM T [facility] Comment: Cholesterol, Total Reference Ranges Desirable <200 mg/dL Borderline 200-239 mg/dL High >=240 mg/dL TRIGLYCERIDES 99 <150 mg/dL 11/21/2023 6:56 PM CDT [facility] HDL CHOLESTEROL 71 >40 mg/dL 6:56 PM CDT [facility] NON-HDL CHOLESTEROL 156(H) <145 mg/dl 11/21/2023 6:56 PM T [facility] CHOL/HDL RATIO 3.20 <4.50 11/21/2023 6:56 PM CDT [facility] LDL CHOLESTEROL 136(H) <=130 mg/dL 11/21/2023 6:56 PM CDT [facility] VLDL CHOLESTEROL 20 <=30 mg/dL 11/21/2023 6:56 PM CDT [facility] PROVIDER ORDERED STATUS RANDOM 11/21/2023 6:56 PM CDT [facility] Blood BLOOD SPECIMEN / Unknown Venipuncture / Unknown 11/21/2023 9:30 AM CDT 11/21/2023 9:30 AM CDT Ginger SEXTON CHEMISTRY Final R esult [facility] [address] [place] [address], [place] * SCAN-COLONOSCOPY (11/22/2022 12:00 AM CDT) us Scanner OTHER Final Result * ANTI HCV (09/14/2021 11:56 AM CDT) HEPATITIS C ANTIBODY Non-React christopher Non-React christopher 09/14/2021 11:24 PM CDT [facility] Comment:Antibodies to HCV no t detected; does not exclude the possibility of exposure to HCV. Blood BLOOD SPECIMEN / Unknown Venipuncture / Unknown 09/14/2021 11:56 AM CDT 09/14/2021 11:57 AM CDT Ginger SEXTON SEND OUTS Final R esult [facility] [address] [place] [address], [place] from Last 3 Months or Most Recently Relevant to Health Maintenance Insurance [employer] PB ONLY [employer] Care Teams Dial Polisher Relationship Specialty Start Date [place] [address] PCP - General Family Practice 11/08/12
--- OUTSIDE RECORDS SUMMARY | 2024-06-04 12:48 | XMS_ITS | Clinical Summary ---
Author Organization [facility] Address [address] [place] [address] Care Team Providers Care Corrections Caseworker Name Role Phone Ginger Chow PA-C Primary Care Provider [phone] Source Comments You are receiving this document as you are listed as the primary care provider,follow-up provider, or the patient has been referred to you for consultation.This is in compliance with the Medicare and[facility] EHR Incentive Program,which states Providers who transition [...] age to complete this topic Care Teams Corrections Caseworker Relationship Specialty Start Date End Date Ginger Chow PA-C [address] [place] [address] PCP - General Physician Line Crewman 01/17/17
[2024-06-04 13:04] VITALS: BP 112/70; PULSE 94; RESP 18; TEMP 36.8; O2SAT 97; BMI 21.9
--- NOTE | 2024-06-04 13:27 | CRLHL7_ITS ---
For Patients: As a result of the Cures Act, medical imaging exams and procedure reports are released immediately into your electronic medical record. You may view this report before your referring provider. If you have questions, please contact your health care provider. INDICATION: Cough COMPARISON: 05/26/2024 chest radiograph TECHNIQUE: Two radiographic view(s) of the chest. FINDINGS: No pleural effusion. No pneumothorax. Similar mild biapical pleural-parenchymal thickening. No definite focal pulmonary consolidation. Normal heart size. No evidence of acute displaced rib fracture. Similar slight multilevel anterior vertebral body wedging throughout the visualized spine. There are osseous degenerative changes. IMPRESSION: No acute cardiopulmonary findings. Dictated by Esequiel Tena MD @ 06/04/2024 2:42:36 PM (Electronically Signed)
--- NOTE | 2024-06-04 13:29 | ED_ITS ---
HPI - General Adult General Chief complaint: Shortness of Breath/Dyspnea Stated complaint: SOB - Influenza A last week Time Seen by Provider: 06/04/24 13:07 History of Present Illness HPI narrative: This 68-year-old female comes in reporting some shortness of breath related to influenza a infection. She has had symptoms for about a week and was positive for influenza A. She does use an inhaler and states that her breathing felt rather tight this morning. She is feeling better now. She does arrive here with normal vital signs. She does not report any fevers. Related Data Home Medications ?Medication ?Instructions ?Recorded ?Confirmed levothyroxine 75 mcg tablet 75 mcg PO QAM 09/18/22 06/04/24 Previous Rx's ?Medication ?Instructions ?Recorded albuterol sulfate 2.5 mg/3 mL 2.5 mg (3 mL) inhalation Q4-6H PRN 05/10/23 (0.083 %) solution for nebulization shortness of breath or wheezing #75 mL albuterol sulfate 90 mcg/actuation 2 puff inhalation Q4-6H PRN 05/10/23 aerosol inhaler shortness of breath or wheezing #6.7 grams oseltamivir 75 mg capsule (Tamiflu) 75 mg PO BID 5 days #10 caps 05/26/24 methylprednisolone 4 mg tablets in See Rx Instructions PO .COMPLEX 06/04/24 a dose pack (Medrol (Javi)) #21 ea Allergies Allergy/AdvReac Type Severity Reaction Status Date / Time No Known Drug Allergies Allergy Verified 06/04/24 13:09 Review of Systems Status of ROS: Reports: 10 or more systems reviewed and unremarkable except as noted in History and below Narrative: Constitutional: No fevers, no weight gain or loss. Eyes: No discharge. No vision changes. HENT: No congestion, no sore throat, no ear pain. Cardiovascular: No chest pain, no palpitations. Respiratory: Cough and occasions of shortness of breath. Gastrointestinal: No abdominal pain, no vomiting, no diarrhea. Genitourinary: No dysuria, no hematuria. Musculoskeletal: Normal range of motion. Skin: No rashes, no pruritis. Neurological: No dizziness, weakness, sensory change, speech change. Endo/Heme/Allergies: No bruising or bleeding. No polydipsia. Pysch: no suicidality, no anxiety, no insomnia. All other systems reviewed and are negative. PFSH PFSH Medical History Symptomatic menopausal or female climacteric states ?N95.1 - Menopausal and female climacteric states (ICD-10) Shingles ?B02.9 - Zoster without complications (ICD-10) Lichen sclerosus ?L90.0 - Lichen sclerosus et atrophicus (ICD-10) Anxiety ?F41.9 - Anxiety disorder, unspecified (ICD-10) Depression, major, single episode, severe ?F32.2 - Major depressive disorder, single episode, severe without psychotic features (ICD-10) Lumbar radiculopathy ?M54.16 - Radiculopathy, lumbar region (ICD-10) Mechanical low back pain ?M54.59 - Other low back pain (ICD-10) Lumbar herniated disc ?M51.26 - Other intervertebral disc displacement, lumbar region (ICD-10) Macrocytosis without anemia ?D75.89 - Other specified diseases of blood and blood-forming organs (ICD-10) Unspecified hypothyroidism ?E03.9 - Hypothyroidism, unspecified (ICD-10) Surgical History H/O: hysterectomy ?Z90.710 - Acquired absence of both cervix and uterus (ICD-10) Social History Smoking Status: Never smoker Do you use any of these nicotine containing products: None Second hand tobacco smoke exposure: No How often do you have a drink containing alcohol: monthly or less AUDIT-C Alcohol total score: 1 Non-prescribed substance use: denies use service: No Exam Narrative: Exam Narrative: Constitutional: Well-developed, well-nourished, no acute distress. HEENT: Normocephalic, atraumatic. Neck: Normal range of motion. Nontender. Supple. Heart: Regular. No murmurs. Normal rate. Intact distal pulses. Lungs: Clear to auscultation. No chest discomfort. No wheezes, rhonchi, or rales. Abdomen: Normal bowel sounds. Nontender. No rebound tenderness. Genitalia: Deferred. Back: No midline tenderness. Normal range of motion. Extremities: Normal range of motion. No injury. Skin: Intact. No rash. Warm. No erythema or pallor. Neurologic: No altered sensation. No weakness. Alert and oriented. Psychiatric: No suicidality. No anxiety or depression. No insomnia. Nursing notes and vitals signs are reviewed. Const: Vital Signs, click to edit/add: Vital Signs - 24 hr 06/04/24 13:04 Temperature 98.2 F Pulse Rate [Pulse Oximeter] 94 Respiratory Rate 18 Blood Pressure [Ri ght Upper Arm] 112/70 Pulse Oximetry 97 Oxygen Delivery Me thod Room Air Course Vital Signs Vital signs: Initial Vital Signs Temperature 98.2 F 06/04/24 13:04 Temperature Source Temporal Artery Scan 06/04/24 13:04 Pulse Rate 94 06/04/24 13:04 Respiratory Rate 18 06/04/24 13:04 Blood Pressure 112/70 06/04/24 13:04 Blood Pressure Mean 84 06/04/24 13:04 Blood Pressure Position Sitting 06/04/24 13:04 Pulse Oximetry 97 06/04/24 13:04 Oxygen Delivery Method Room Air 06/04/24 13:04 Vital Signs Temperature 98.2 F 06/04/24 13:04 Pulse Rate 94 06/04/24 13:04 Respiratory Rate 18 06/04/24 13:04 Blood Pressure 112/70 06/04/24 13:04 Pulse Oximetry 97 06/04/24 13:04 Oxygen Delivery Method Room Air 06/04/24 13:04 Temperature 98.2 F 06/04/24 13:04 Pulse Rate 94 06/04/24 13:04 Respiratory Rate 18 06/04/24 13:04 Blood Pressure 112/70 06/04/24 13:04 Pulse Oximetry 97 06/04/24 13:04 Oxygen Delivery Method Room Air 06/04/24 13:04 Medications Administered Medications: Discontinued Medications Generic Name Dose Route Start Last Admin Trade Name Freq PRN Reason Stop Dose Admin Dexamethasone 10 mg 06/04/24 13:27 06/04/24 13:41 Dexamethasone 10 Mg/Ml Inj PO 06/04/24 13:28 10 mg ONCE ONE Administration Medical Decision Making MDM Narrative Medical decision making narrative: This patient has influenza and comes in reporting some occasions of chest tightness and shortness of breath. She does have a nebulizer and has been using that about 3 times a day during this past week. She arrives here with normal vital signs. An x-ray is obtained and shows no acute findings. The patient did receive an oral dose of dexamethasone and states that she is feeling significantly better. She is okay to be discharged home. I did provide a prescription for Medrol Dosepak. Imaging Data Chest x-ray: Radiologist's impression: No acute cardiopulmonary findings. Discharge Plan Discharge Clinical Impression: Influenza A Patient Disposition: Home, Self-Care Condition: Improved Additional Instructions: Take medication as prescribed. Follow up with MD return if worsening symptoms occur. Prescriptions: New methylprednisolone [Medrol (Javi)] 4 mg tablets,dose pack See Rx Instructions .ROUTE .COMPLEX Qty: 21 0RF Rx Instructions: orally per package directions No Action albuterol sulfate 90 mcg/actuation HFA aerosol inhaler 2 puff inhalation Q4-6H PRN (Reason: shortness of breath or wheezing) Qty: 6.7 0RF albuterol sulfate 2.5 mg /3 mL (0.083 %) solution for nebulization 2.5 mg inhalation Q4-6H PRN (Reason: shortness of breath or wheezing) Qty: 75 0RF levothyroxine 75 mcg tablet 75 mcg PO QAM oseltamivir [Tamiflu] 75 mg capsule 75 mg PO BID 5 Days Qty: 10 0RF Follow Up/Referrals: Ginger Chow PA-C [Primary Care Provider] - [facility]one [facility] Inst[facility]
--- OUTSIDE RECORDS SUMMARY | 2024-06-04 13:35 | XMS_ITS | Clinical Summary ---
Author Organization [facility] Address [place], [place] [address] Care Team Providers Care Drop Wire Operator Name Role Phone Ginger Chow Primary [...] Department Care Team Description 06/04/2024 Nurse Triage [facility] Nurse Triage Ginger Chow PA Breathing Problem 05/26/2024 Orders Only [facility] Scanner 1 scan: (1-Ord) ALISO VIEJO, XR CHEST 2V, 05/26/2024 05/15/2024 8:25 AM PROCUREMENT TECHNICIAN Office Visit [facility] [address] [place] [address] Sully Barnes MD Throat Problem (Woke up with a sore throat on Tuesday. Has phelm and nasal congestion. Yellow in color./Has asthma and feels a little short of breath. ) 05/15/2024 Travel 04/16/2024 1:30 PM PROCUREMENT TECHNICIAN Ancillary Procedure [facility] [address] [place] [address] 04/16/2024 1:00 PM PROCUREMENT TECHNICIAN Office Visit [facility] [address] [place] [address] Ginger Chow PA Leg Pain/problem (Pain is at very top of R leg- started yesterday while sitting on floor) 04/16/2024 Travel 03/14/2024 9:10 AM PROCUREMENT TECHNICIAN Office Visit [facility] [address] [place] [address] Ginger Chow PA Medication Management (Sythroid - ); Results (Bone density results) 03/14/2024 Travel 03/14/2024 Refill [facility] [address] [facility] [place] [address] Ginger Chow PA Refill Request (Levothyroxine) 03/12/2024 Refill [facility] [address] [facility] [place] [address] Ginger Chow PA Refill Request (LEVOTHYROXINE 50MCG [...] on file Legal Sex Female 5:26 AM PROCUREMENT TECHNICIAN Gender Identity Not on file Sexual Orientation Not on file Obstetrics History Last Filed Vital Signs Vital Sign Reading Time Taken Comments Blood Pressure 122/76 05/15/2024 8:27 AM PROCUREMENT TECHNICIAN Pulse 91 05/15/2024 8:27 AM PROCUREMENT TECHNICIAN Temperature 36.7 C (98.1 F) 05/15/2024 8:27 AM PROCUREMENT TECHNICIAN Respiratory Rate 18 11/10/2022 11:09 AM CDT Oxygen Saturation 100% 05/15/2024 8:27 AM PROCUREMENT TECHNICIAN Inhaled Oxygen Concentration - - Weight 51.7 kg (114 lb) 05/15/2024 8:27 AM PROCUREMENT TECHNICIAN Height 152 cm (4' 11.84) 11/21/2023 8:46 AM CDT Body Mass Index 22.38 11/21/2023 8:46 AM CDT Plan of Treatment Upcoming Encounters Date Type Department Care Team (Late st Contact Info) Description 06/11/2024 2:40 PM PROCUREMENT TECHNICIAN Office Visit [facility] [address] [place] [address] Ginger Chow PA [address] [place] [address] Health Maintenance Due Date Last Done Comments [...] Diagnosis Comments SCAN-RADIOLOGY REPORT 05/26/2024 12:00 AM PROCUREMENT TECHNICIAN XR HIP 1 VIEW W PELVIS RIGHT Routine 04/16/2024 1:49 PM PROCUREMENT TECHNICIAN Right groin pain TSH WITH REFLEX Routine 04/16/2024 1:36 PM PROCUREMENT TECHNICIAN Hypothyroidism, unspecified type T4,FREE Routine 03/14/2024 9:44 AM PROCUREMENT TECHNICIAN Hypothyroidism, unspecified type TSH Routine 03/14/2024 9:44 AM PROCUREMENT TECHNICIAN Hypothyroidism, unspecified type XR MAMMO BILAT SCREENING [...] Results * SCAN-RADIOLOGY REPORT (05/26/2024 12:00 AM PROCUREMENT TECHNICIAN) Anatomical Region Laterality Modality Other us Scanner OTHER Final Result * XR HIP 1 VIEW W PELVIS RIGHT (04/16/2024 1:49 PM PROCUREMENT TECHNICIAN) Anatomical Region Laterality Modality HIPS, HIPR, Pelvis Computed Radi ography 04/16/2024 3:10 PM PROCUREMENT TECHNICIAN Narrative 04/16/2024 3:10 PM PROCUREMENT TECHNICIAN For Patients: As a result of the [...] * TSH WITH REFLEX (04/16/2024 1:36 PM PROCUREMENT TECHNICIAN) Pathologist [facility] TSH W/REFLEX TO FT4 4.34 0.40 - 4.50 mIU/L [facility] Blood BLOOD SPECIMEN / Unknown 04/16/2024 1:36 PM PROCUREMENT TECHNICIAN 04/16/2024 1:36 PM PROCUREMENT TECHNICIAN Ginger SEXTON CHEMISTRY Final R esult [facility] [address] [place] [address], [facility] [address] [facility] [address] * (ABNORMAL) TSH (03/14/2024 9:44 AM PROCUREMENT TECHNICIAN) [facility] TSH 12.76(H) 0.40 - 4.50 mIU/L [facility] Blood BLOOD SPECIMEN / Unknown 03/14/2024 9:44 AM PROCUREMENT TECHNICIAN 03/14/2024 9:44 AM PROCUREMENT TECHNICIAN Ginger SEXTON CHEMISTRY Final R esult [facility] [address] [facility] [place] [address], [facility] [address] [facility] [address] * T4,FREE (03/14/2024 9:44 AM PROCUREMENT TECHNICIAN) Pathologist [facility] T4, FREE 1.1 0.8 - 1.8 ng/dL [facility] Blood BLOOD SPECIMEN / Unknown 03/14/2024 9:44 AM PROCUREMENT TECHNICIAN 03/14/2024 9:44 AM PROCUREMENT TECHNICIAN Ginger SEXTON CHEMISTRY Final R esult [facility] [address] [place] [address], [facility] [address] [place] [address] * XR MAMMO BILAT SCREENING (12/19/2023 9:30 [...] health care provider. XR MAMMO BILAT SCREENING [[id number]] CLINICAL HISTORY: This is an asymptomatic 68 y.o. patient. INDICATION FOR EXAM: Mammogram Screening. TECHNIQUE: CC & MLO views were obtained. This study was evaluated with the assistance of Computer-Aided Detection. COMPARISON FILM: Yes 10/06/21 [facility] 07/13/11 [employer] FINDINGS: The breasts are heterogeneously dense, which [...] to assess therapeutic efficacy. Ginger Chow PA-C [facility] 12/20/2023 Narrative 12/20/2023 3:13 PM CDT For Patients: Results are automatically released to your [facility] ([facility]) account once available, in compliance with federal regulations. This means that you may see your results before your provider has had a chance to review them. Please allow 2-3 business days for your provider to comment on the results. XR DXA Bone Mineral Density (BMD) EXAM LOCATION: [address] [address] PATIENT NAME: Isa Barnes DATE OF : [...] two scanners are made by the same electrical assembly technician. PROCEDURE: Dual-energy x-ray absorptiometry performed with routine [...] REFLEX MEASURED LDL (11/21/2023 9:30 AM CDT) [facility] CHOLESTEROL,TOTAL 227(H) 100 - 199 mg/dL 11/21/2023 6:56 PM T [facility] Comment: Cholesterol, Total Reference Ranges Desirable <200 mg/dL Borderline 200-239 mg/dL High >=240 mg/dL TRIGLYCERIDES 99 <150 mg/dL 11/21/2023 6:56 PM CDT [facility] HDL CHOLESTEROL 71 >40 mg/dL 6:56 PM CDT [facility] NON-HDL CHOLESTEROL 156(H) <145 mg/dl 11/21/2023 6:56 PM T [facility] CHOL/HDL RATIO 3.20 <4.50 11/21/2023 6:56 PM CDT [facility] LDL CHOLESTEROL 136(H) <=130 mg/dL 11/21/2023 6:56 PM CDT [facility] VLDL CHOLESTEROL 20 <=30 mg/dL 11/21/2023 6:56 PM CDT [facility] PROVIDER ORDERED STATUS RANDOM 11/21/2023 6:56 PM CDT [facility] Blood BLOOD SPECIMEN / Unknown Venipuncture / Unknown 11/21/2023 9:30 AM CDT 11/21/2023 9:30 AM CDT Ginger SEXTON CHEMISTRY Final R esult [facility] [address] [place] [address], [place] * SCAN-COLONOSCOPY (11/22/2022 12:00 AM CDT) us Scanner OTHER Final Result * ANTI HCV (09/14/2021 11:56 AM CDT) HEPATITIS C ANTIBODY Non-React christopher Non-React christopher 09/14/2021 11:24 PM CDT [facility] Comment:Antibodies to HCV no t detected; does not exclude the possibility of exposure to HCV. Blood BLOOD SPECIMEN / Unknown Venipuncture / Unknown 09/14/2021 11:56 AM CDT 09/14/2021 11:57 AM CDT Ginger SEXTON SEND OUTS Final R esult [facility] [address] [place] [address], [place] from Last 3 Months or Most Recently Relevant to Health Maintenance Insurance [employer] PB ONLY [employer] Care Teams Drop Wire Operator Relationship Specialty Start Date End [place] [address] PCP - General Family Practice 11/08/12
--- OUTSIDE RECORDS SUMMARY | 2024-06-04 13:35 | XMS_ITS | Clinical Summary ---
Author Organization [facility] Address [address] [place] [address] Care Team Providers Care Flat Optical Element Maker Name Role Phone Ginger Chow PA-C Primary Care Provider [phone] Source Comments You are receiving this document as you are listed as the primary care provider,follow-up provider, or the patient has been referred to you for consultation.This is in compliance with the Medicare and[facility] EHR Incentive Program,which states Providers who [...] age to complete this topic Care Teams Flat Optical Element Maker Relationship Specialty Start Date End Date Ginger Chow PA-C [address] [place] [address] PCP - General Physician Protective Signal Operations Supervisor 01/17/17
[2024-06-04] MEDS: dexAMETHasone 10 MG/ML inj PO (13:41)
== END 2024-06-04 15:43 | disposition home or self-care (01) ==
PROVIDERS: Emergency Provider Emergency Medicine Emergency Medical Services; PCP Physician Assistant Medical
DX: J09.X2 Influenza due to identified novel influenza A virus with other respiratory manifestations (principal)
CPT/HCPCS: 71046; 99283; 99284; J1100

== ENCOUNTER 2024-06-26 10:45 | Outpatient (RCR) | payer MEDICARE, OTHER, SELFPAY ==
--- NOTE | 2024-06-12 17:37 | PT.OPEX ---
PT [place] Outpatient Eval PT [facility] Outpatient Eval Start: 06/12/24 16:43 Freq: Status: Active Protocol: Document 06/12/24 16:43 CHANEL (Rec: 06/12/24 17:27 CHANEL [email or web address]) E-signed By Tierney Jimenez DPT Physical Therapy Outpatient Evaluation Insurance Information Recert Due Date 09/10/24 Insurance Name Medicare B,[employer] Medical Diagnosis R hip OA Treating Diagnosis R hip tightness, stiffnes (hx of intermittent pain) Subjective Subjective Patient reports R hip stiffness and recalls some episodes of intermittent pain over the last year. She had a flare up of pain with an extended car ride last summer. Patient had an episode of PT after this flare up of back/ hip pain. Her pain/sx resolved and she was doing some home exercises. She admits that she has gotten away from her home program and she is not doing a [employer] program like she was hoping to get into. Patient reports some recent illness (influenza A) and was following up with her MD. She mentioned her prior hip issues to the MD and they ordered an xray. Xray showed hip OA and patient was referred to ortho. Patient had follow up with ortho and was referred to PT. Patient denies any pain at this time. States she has been doing well since her last episode of PT last summer. She was concerned with her dx of hip OA and MD told her she may need a hip replacement at some point. Patient wants to get back on track with her exercises as she does not want to have hip surgery. She is not needing pain meds, no issues with daily activities. States she tries to avoid doing too many stairs and avoids longer car rides as she is fearful of having increased pain but she has not been having any pain. Date of Last Physician Visit 04/23/24 Current Work Status Retired Precautions Treatment Precautions/Contraindications resp issues, asthma, hip OA, osteoporosis Assessment Assessment/Impression Patient is a 68 year old female with R hip tightness, stiffnes (hx of intermittent pain). She denies pain this session, states she has been doing pretty well since her last episode of PT last summer . She has not continued with her HEP. States she mentioned hx of hip issues to her primary MD at a recent appt and xrays showed OA. She was referred to ortho for follow up and then referral to PT. Patient is concerned she will need a hip replacement in the future. She would like to get back on track with exercises. Patient with some bilateral hip tightness, limited IR, ER. Patient with bilateral hip flexor tightness, limited hip ext. Overall, hip ROM is WFL. Patient with hx of back/hip pain issues, prior PT focusing on alignment, core/hip/glut strengthening. Patient has been avoiding stairs and extended car rides as these activities have flared up her pain in the past and she is now fearful of flaring up pain . Plan to continue with PT for 3-4 visits to set up a HEP . If patient continues to do well, plan to transition to HEP and she has a membership at the [facility] for ongoing gym program. Patient would benefit from skilled PT for core/hip/glut/LE strengthening , improved hip mobility, and establishment of HEP. Plan of Care Rehabilitation Potential Good Physical Therapy Goals 1. Decrease/maintain R hip pain at less than/equal to 3/ 10 with daily activities and with the progression of PT activities over the next 4-6 weeks. 2. Improve R hip ROM over the next 4-6 weeks for decreased tightness, stiffness in R hip with daily activities and for decreased stress/pain in R hip with daily activities. 3. Improve hip/glut/LE/core strength over the next 6-8 weeks for decreased stress on R hip, decreased pain R hip, and to avoid flare ups of pain with daily activities. 4. Patient will be I with HEP within 8 weeks for progression toward above goals, ongoing self management of pain/sx, ongoing self improvements in R hip ROM/mobility/strength, and for performance of daily activities/standing/walking without flare up of pain. Coordination/Communication With Referral Source Treatment Plan/Direct Interventions Therapeutic Exercises Frequency/Duration 3-4 visits for HEP and transition to HEP if patient continues to do well Patient Will Be Discharged From Therapy Completion of LTG(s),Skills Plateau,Independent w/HEP, Independently Progressing Evaluation Billing Untimed Code Treatment Minutes 18 Complexity Low Certification Information Initial Certification Date 06/12/24 Ending Certification Date 09/10/24 Provider Signature Required Yes Provider Signature Shows Agreement With POC & Medical Necessity Physician NPI Number Write NPI# Here Physician Comment/Change : Physician Signature & Date Requested Please Sign/Date Here
== END 2024-10-24 23:59 | disposition home or self-care (01) ==
PROVIDERS: PCP Physician Assistant Medical; Visit Provider Orthopaedic Surgery
DX: M16.11 Unilateral primary osteoarthritis, right hip (principal); Z51.89 Encounter for other specified aftercare
CPT/HCPCS: 97110; 97161

== ENCOUNTER 2024-10-31 15:05 | Emergency (ER) | payer MEDICARE, OTHER, SELFPAY ==
--- OUTSIDE RECORDS SUMMARY | 2024-10-31 15:09 | XMS_ITS | Clinical Summary ---
Author Organization [email or web address] [facility] Address [address] [place] [address] Care Team Providers Care Fashion Consultant Selling Name Role Phone Ginger Chow Primary Care Provider Allergies No known active allergies Medications LORazepam (ATIVAN) 0.5 mg tabIndications:A nxiety TAKE 1 TABLET (0.5 MG) BY MOUTH 2 TIMES DAILY IF NEEDED FOR ANXIETY. 15 Tablet 4 Active albuterol HFA (PRO-AIR; VENTOLIN; PROVENTIL) 90 mcg/actuation inhalerIndicatio ns:Asthma, acute (HC) INHALE 1-2 PUFFS BY MOUTH EVERY 4 HOURS NEEDED 8.5 Each 5 4 Active levothyroxine (SYNTHROID) 75 mcg tabletIndication s:Hypothyroidism , unspecified type TAKE 1 TABLET (75 MCG) BY MOUTH BEFORE BREAKFAST. TAKE 6 DAYS A WEEK. 90 Tablet 2 5 Active budesonide-formo teroL 80-4.5 mcg/actuation (80-4.5 mcg each actuation) inhalerIndicatio ns:Moderate persistent asthma without complication (HC) Inhale 2 puffs twice daily and 1-2 puffs every 4 hours as needed for asthma exacerbatio ns. Max 12 puffs per day. 1 Each 3 5 Active fluticasone propion-salmeter oL (Advair Diskus) 250-50 mcg/Dose diskus inhalerIndicatio ns:Moderate persistent asthma with exacerbation (HC) Inhale 1 Puff by mouth two times daily. 60 Each 4 10/18/19 25 Discontinue d(*Med complete/Re gimen complete/Le phong of care change) azithromycin (Zithromax Z-Javi) 250 mg tabletIndication s:Acute non-recurrent frontal sinusitis Take 500 mg today and then 250 mg days 2-5 6 Tablet 5 10/18/19 25 Discontinue d(*Med complete/Re gimen complete/Le phong of care change) predniSONE 20 mg tabletIndication s:SOB (shortness of breath) Take 2 Tablets (40 mg) by mouth once daily with a meal for 5 days. 10 Tablet 5 10/23/19 Active Problems Problem Noted Date Diagnosed Date Macrocytosis without anemia 08/01/2023 Anxiety 08/01/2023 Lumbar radiculopathy 11/10/2022 Depression, major, single episode, severe 2019 Mechanical low back pain 08/23/2017 Lumbar herniated disc 05/09/2014 Overview (09/20/2022): Herniated Disc Left Side L1 Lichen sclerosus 05/04/2011 Unspecified asthma(493.90) 02/12/2008 Unspecified hypothyroidism 12/05/2007 Encounters Date Type Department Care Team Description 10/31/2024 Nurse Triage [facility] [address] [place] [address] Ginger Chow PA Breathing Problem; Chest Pain 10/26/2024 Telephone [facility] [address] [place] [address] Conner Lynn MD Questions (Test results) 10/24/2024 8:37 AM CDT - 10/24/2024 11:59 PM CDT Hospital Encounter [facility] [address] [place] [address] Conner Lynn MD SOB (shortness of breath); Asthma, unspecified asthma severity, unspecified whether complicated, unspecified whether persistent (HC) 10/24/2024 Travel 10/17/2024 3:15 PM CDT Ancillary Procedure [facility] [address] [place] [address] 10/17/2024 2:15 PM CDT Office Visit [facility] [address] [place] [address] Conner Lynn MD Asthma (Increase inhaler us, Nicolas had influenza A, SOB) 10/17/2024 Travel from Last 3 Months Immunizations Immunization Administration Dates Next Due COVID-19 vaccine (Moderna [...] on file Legal Sex Female 5:26 AM SALT CUTTER Gender Identity Not on file Sexual Orientation Not on file Obstetrics History Last Filed Vital Signs Vital Sign Reading Time Taken Comments Blood Pressure 124/75 10/17/2024 2:31 PM CDT Pulse 85 10/17/2024 2:31 PM CDT Temperature 36.7 C (98.1 F) 05/15/2024 8:27 AM SALT CUTTER Respiratory Rate 18 11/10/2022 11:09 AM CDT Oxygen Saturation 95% 10/17/2024 2:31 PM CDT Inhaled Oxygen Concentration - - Weight 51.8 kg (114 lb 3.2 oz) 10/17/2024 2:31 P M CDT Height 152 cm (4' 11.84) 11/21/2023 8:46 AM CDT Body Mass Index 22.42 11/21/2023 8:46 AM CDT Plan of Treatment Health Maintenance Due Date Last Done Comments Tdap 1965 Pneumococcal series for age 50+ (1 of 2 - PCV) 1973 Tetanus booster 1974 Zoster (shingles) series for age 50+ (1 of 2) 2004 RSV vaccine for adults or (1 - Risk 60-74 years 1-dose series) 2014 COVID-19 vaccine series ( season) 2024 03/23/2021, 07/16/2020, 06/18/2020 BMI (ht and wt on same day) for age 18+ 11/20/2024 11/21/2023, 11/24/2022, 11/10/2022, Additional history exists Depression screening for age 12+ 11/20/2024 11/21/2023, 11/26/2022, 11/24/2022, Additional history exists Medicare Wellness for age 65+ 11/21/2024 11/21/2023, 11/24/2022, 09/14/2021 Mammogram for age 45-75 12/18/2024 12/19/19 24, 10/06/2021, 07/13/2011 Influenza Vaccine (Season Ended) 2025 02/19/2008, 02/27/2007 Colonoscopy through age 75 11/23/202711/22, 11/22/2022, 11/22/2022, Additional history exists Lipids for age 45-75 11/20/2028 11/21/2023, 11/24/2022, 09/14/2021, Additional history exists Hepatitis C screening for age 18-79 Completed 09/14/2021 DEXA/DXA scan for age 65+ Completed 2023, 10/06/2021, 05/23/2015, Additional history exists Hepatitis B series for 19+ Aged Out N o longer eligible based on patient's age to complete this topic Procedures Procedure Name Priority Date/Time Associated Diagnosis Comments COMPLETE PULMONARY FUNCTION TEST WITH BRONCHODILATOR JOANNE 10/24/2024 9:00 AM CDT SOB (shortness of breath) Asthma, unspecified asthma severity, unspecified whether complicated, unspecified whether persistent (HC) PRO-BNP Routine 10/17/2024 3:27 PM CDT SOB (shortness of breath) XR CHEST 2 VIEWS PA AND LATERAL Routine 10/17/2024 3:19 PM CDT SOB (shortness of breath) XR MAMMO BILAT SCREENING Routine 12/19/2023 9:30 [...] Recently Relevant to Health Maintenance Results * COMPLETE PULMONARY FUNCTION TEST WITH BRONCHODILATOR (10/24/2024 9:00 AM CDT) Narrative [facility] - 10/24/2024 9:00 AM CDT Pipo Zaidi MD 10/26/2024 2:05 PM Complete Pulmonary Function Tests. Ordering Provider: -- Reason for Study: Asthma Date of study: 10/24/2024 Study adequacy: The study is technically adequate. DESCRIPTION: There is a mild reduction in the FVC. There is a mild reduction in the FEV1. The FEV1/FVC ratio is normal. There is bronchodilator responsiveness. The flow volume loop is normal Lung volumes reveal air trapping. Diffusion is normal IMPRESSION: There is airflow obstruction with complete reversibility suggestive of asthma. Diffusion is normal. There is significant response to bronchodilator. Pulmonary Function Tests describe physiology and are not independently diagnostic. Clinical correlation is recommended. Severity Z-Score Normal > -1.645 Mild - 1.645 to -2.5 Moderate -2.5 to -4 Severe < -4 Pipo Zaidi MD Diplomate, ABIM in Pulmonary and Sleep Medicine Conner Lynn MD PFT ORD Final Result [facility] [place], [place] * PRO-BNP (10/17/2024 3:27 PM CDT) NT PROBNP 72 <125 pg/mL [facility] Blood BLOOD SPECIMEN / Unknown 10/17/2024 3:27 PM CDT 10/17/2024 3:28 PM CDT Conner Lynn MD SEND OUTS Final Result [facility] [address] [address], [place] [phone] [facility] [address] [place] [address] * XR CHEST 2 VIEWS PA AND LATERAL (10/17/2024 3:19 PM CDT) Anatomical Region Laterality Modality CHEST, THORAX, Lung, HEART Compu yahir Radiography 10/19/2024 3:44 PM CDT Impressions 10/19/2024 3:44 PM CDT Negative chest Dictated by Xavier Bailon MD @ 10/19/2024 3:44:39 PM (Electronically Signed) Narrative 10/19/2024 3:44 PM CDT For Patients: As a result of the Cures Act, medical imaging exams and procedure reports are released immediately into your electronic medical record. You may view this report before your referring provider. If you have questions, please contact your health care provider. INDICATION: SOB TECHNIQUE: PA and lateral COMPARISON: 08/01/2023 FINDINGS: Lungs and pleural spaces clear. Heart size and pulmonary vasculature within normal limits. No significant osseous abnormality. Procedure Note Xavier Bailon MD - 10/19/2024 For Patients: As a result of the Cures Act, medical imagingexams and procedure reports are released immediately into your electronicmedical record. You may view this report before your referring provider.If you have questions, please contact your health care provider. INDICATION: SOB TECHNIQUE: PA and lateral COMPARISON: 08/01/2023 FINDINGS: Lungs and pleural spaces clear. Heart size and pulmonary vasculaturewithin normal limits. No significant osseous abnormality. IMPRESSION: Negative chest Dictated by Xavier Bailon MD @ 10/19/2024 3:44:39 PM (Electronically Signed) Conner Lynn MD GENERAL IMAGING Final Result * XR MAMMO BILAT SCREENING (12/19/2023 9:30 [...] For Patients: As a result of the Century Cures Act, medical imaging exams and procedure reports are released immediately into your electronic medical record. You may view this report before your referring provider. If you have questions, please contact your health care provider. XR MAMMO BILAT SCREENING [[id number]] CLINICAL HISTORY: This is an asymptomatic 68 y.o. patient. INDICATION FOR EXAM: Mammogram Screening. TECHNIQUE: CC & MLO views were obtained. This study was evaluated with the assistance of Computer-Aided Detection. COMPARISON FILM: Yes 10/06/21 [facility] 07/13/11 [facility] FINDINGS: The breasts are heterogeneously dense, which [...] to assess therapeutic efficacy. Ginger Chow PA-C [facility] 12/20/2023 Narrative 12/20/2023 3:13 PM CDT For Patients: Results are automatically released to your [facility] ([employer]) account once available, in compliance with federal regulations. This means that you may see your results before your provider has had a chance to review them. Please allow 2-3 business days for your provider to comment on the results. XR DXA Bone Mineral Density (BMD) EXAM LOCATION: [facility] [address] [address] PATIENT NAME: Isa Barnes DATE OF : [...] two scanners are made by the same accident examiner. PROCEDURE: Dual-energy x-ray absorptiometry performed with routine [...] - 199 mg/dL 11/21/2023 6:56 PM CDT [facility] Comment: Cholesterol, Total Reference Ranges Desirable <200 mg/dL Borderline 200-239 mg/dL High >=240 mg/dL TRIGLYCERIDES 99 <150 mg/dL 11/21/2023 6:56 PM CDT [facility] HDL CHOLESTEROL 71 >40 mg/dL 6:56 PM CDT [facility] NON-HDL CHOLESTEROL 156(H) <145 mg/dl 11/21/2023 6:56 PM CDT [facility] CHOL/HDL RATIO 3.20 <4.50 11/21/2023 6:56 PM CDT [facility] LDL CHOLESTEROL 136(H) <=130 mg/dL 11/21/2023 6:56 PM CDT [facility] VLDL CHOLESTEROL 20 <=30 mg/dL 11/21/2023 6:56 PM CDT [facility] PROVIDER ORDERED STATUS RANDOM 11/21/2023 6:56 PM CDT [facility] Blood BLOOD SPECIMEN / Unknown Venipuncture / Unknown 11/21/2023 9:30 AM CDT 11/21/2023 9:30 AM CDT Ginger SEXTON CHEMISTRY Final R esult [facility] [address] [place] [address], [place] * SCAN-COLONOSCOPY (11/22/2022 12:00 AM CDT) us Scanner OTHER Final Result * ANTI HCV (09/14/2021 11:56 AM CDT) HEPATITIS C ANTIBODY Non-React christopher Non-React christopher 09/14/2021 11:24 PM CDT [facility] Comment:Antibodies to HCV no t detected; does not exclude the possibility of exposure to HCV. Blood BLOOD SPECIMEN / Unknown Venipuncture / Unknown 09/14/2021 11:56 AM CDT 09/14/2021 11:57 AM CDT us Ginger SEXTON SEND OUTS Final R esult [facility] [address] [place] [address], [place] from Last 3 Months or Most Recently Relevant to Health Maintenance Insurance Myrl MR PB ONLY MEDICARE PART A HB ONLY MED[employer] PRIME SOLUTION HB MEDICARE PART B HB ONLY [facility] Care Teams Fashion Consultant Selling Relationship Specialty Start Date End Date Ginger Chow PA [facility] [address] PCP - General Family Practice 11/08/12
--- OUTSIDE RECORDS SUMMARY | 2024-10-31 15:09 | XMS_ITS | Clinical Summary ---
Author Organization [facility] Address [address], [place] [address] Care Team Providers Care Baggage Porter Head Name Role Phone Ginger Chow PA-C Primary Care Provider [phone] Source Comments You are receiving this document as you are listed as the primary care provider,follow-up provider, or the patient has been referred to you for consultation.This is in compliance with the Medicare and[facility] EHR Incentive Program,which states Providers who transition [...] Years Used Date Smoking Tobacco: Never Assessed Comments Unknown Sex and Gender Information Value Date Recorded Sex Assigned at Not on file Legal Sex Female 9:21 AM CDT Gender Identity Not on file Sexual Orientation Not on file Plan of Treatment Health Maintenance Due Date Last Done Comments Colon Cancer Screening Plan Due 1955 Hep C Screening (Preventive Services) 1955 Medicare Annual Wellness Visit 1955 Mammogram 1955 DTaP/Tdap/Td Vaccine (1 - Tdap) 1973 Cholesterol 08/10/1999 Pneumococcal Vaccine 50+ Yrs (1 of 1 - PCV) 2004 Zoster/Shingles Vaccine (1 o f 2) 2004 Dexa 08/10/2019 COVID-19 Vaccine (3 - 2023-2 5 season) 2024 07/16/2020, 06/18/2020 Influenza Vaccine (Season Ended) 2025 02/19/2008, 02/27/2007 RSV Vaccine (1 - 1-dose 75+ series) 2029 HepA Vaccine Aged Out No longer eligi ble based on patient's age to complete this topic HepB Vaccine Aged Out No longer eligi ble based on patient's age to complete this topic Hib Vaccine Aged Out No longer eligi ble based on patient's age to complete this topic IPV (Polio) Vaccine Aged Out No longe r eligible based on patient's age to complete this topic MCV4 Vaccine Aged Out No longer eligi ble based on patient's age to complete this topic Meningococcal B Vaccine Aged Out No l onger eligible based on patient's age to complete this topic Insurance [address] [place] [address] [facility] BLUE LINK MEDICARE Care Teams Baggage Porter Head Relationship Specialty Start Date End Date Ginger Chow PA-C [address] [place] [address] PCP - General Physician Gaming Pit Boss 01/17/17
--- OUTSIDE RECORDS SUMMARY | 2024-10-31 15:09 | XMS_ITS | Patient Health Record ---
Author Organization [facility] Address [address] [place] [address] Care Team Providers Care Dermatology Technician Name Role Phone Rusty RAYMUNDO, Xavier Unavailable [phone] Reason For Referral No Information Plan Of Treatment No Information Insurance Providers Payer Name Payer Address Payer Phone Subscriber Number Group Number Insured Name Patient Relationship to Insured Coverage Start Date Coverage End Date [employer] ([employer]) [address], [address] [place] [address] [phone] CameronIsa Self - patient is the insured [facility] [employer] [id number] [place] [address] [address] [place], [place] [id number] Isa Barnes Self - patient is the insured 7
[2024-10-31 15:24] VITALS: BP 134/79; PULSE 79; RESP 16; TEMP 36.2; O2SAT 99; BMI 21.5
--- NOTE | 2024-10-31 16:37 | CRLHL7_ITS ---
For Patients: As a result of the Century Cures Act, medical imaging exams and procedure reports are released immediately into your electronic medical record. You may view this report before your referring provider. If you have questions, please contact your health care provider. Indication: Shortness of breath. Technique: Frontal and lateral chest radiographs. Comparison: Chest radiographs from 06/04/2024. Findings: Lungs are clear. No consolidation, effusion or pneumothorax. Cardiomediastinal silhouette is within normal limits. No significant osseous or soft tissue findings. Impression: 1. No acute cardiopulmonary process. Dictated by Luis Friend MD @ 10/31/2024 5:24:18 PM (Electronically Signed)
--- NOTE | 2024-10-31 16:40 | ED.SOB ---
HPI - SOB/Dyspnea General Date Seen: 10/31/24 Chief Complaint: Shortness of Breath/Dyspnea Stated Complaint: SOB, trouble breathing Time Seen by Provider: 10/31/24 16:25 Source: patient Mode of arrival: ambulatory Limitations: no limitations History of Present Illness HPI Narrative: Patient is a 69-year-old female presenting to the emergency department for shortness of breath. She states symptoms have been going on for the past month and have been gradually getting worse. She called triage line today was told to come to the emergency department. She states since then symptoms seem to get better. Of note while talking to or she seemed to get very anxious and become more short of breath. She states she has been seen for these symptoms previously and has had normal pulmonary function tests. Has had normal x-rays and no abnormality seen of her heart. Her only medical history is previously diagnosed asthma and hypothyroidism. Has been using her inhalers without any improvement. States she has not had to use inhalers for years. Has no history of blood clots. No history of heart disease. Has not had any associated chest pain. States the shortness of breath because her to get lightheaded. Has not had any syncope yet. No other concerns noted Related Data Home Medications ?Medication ?Instructions ?Recorded ?Confirmed levothyroxine 75 mcg tablet 75 mcg PO QAM 09/18/22 10/31/24 budesonide-formoterol HFA 80 inhalation 10/31/24 mcg-4.5 mcg/actuation aerosol inhaler Previous Rx's ?Medication ?Instructions ?Recorded albuterol sulfate 2.5 mg/3 mL 2.5 mg (3 mL) inhalation Q4-6H PRN 05/10/23 (0.083 %) solution for nebulization shortness of breath or wheezing #75 mL albuterol sulfate 90 mcg/actuation 2 puff inhalation Q4-6H PRN 05/10/23 aerosol inhaler shortness of breath or wheezing #6.7 grams Allergies Allergy/AdvReac Type Severity Reaction Status Date / Time No Known Drug Allergies Allergy Verified 10/31/24 15:23 Review of Systems Status of ROS: Reports: 10 or more systems reviewed and unremarkable except as noted in History and below [facility] Medical History Symptomatic menopausal or female climacteric states ?N95.1 - Menopausal and female climacteric states (ICD-10) Shingles ?B02.9 - Zoster without complications (ICD-10) Lichen sclerosus ?L90.0 - Lichen sclerosus et atrophicus (ICD-10) Anxiety ?F41.9 - Anxiety disorder, unspecified (ICD-10) Depression, major, single episode, severe ?F32.2 - Major depressive disorder, single episode, severe without psychotic features (ICD-10) Lumbar radiculopathy ?M54.16 - Radiculopathy, lumbar region (ICD-10) Mechanical low back pain ?M54.59 - Other low back pain (ICD-10) Lumbar herniated disc ?M51.26 - Other intervertebral disc displacement, lumbar region (ICD-10) Macrocytosis without anemia ?D75.89 - Other specified diseases of blood and blood-forming organs (ICD-10) Unspecified hypothyroidism ?E03.9 - Hypothyroidism, unspecified (ICD-10) Surgical History H/O: hysterectomy ?Z90.710 - Acquired absence of both cervix and uterus (ICD-10) Social History Smoking Status: Never smoker Do you use any of these nicotine containing products: None Second hand tobacco smoke exposure: No How often do you have a drink containing alcohol: monthly or less AUDIT-C Alcohol total score: 1 Non-prescribed substance use: denies use service: No Exam Narrative: Exam Narrative: Const: Well-nourished, Well-developed, in mild distress Eyes: PERRL, no conjunctival injection, and symmetrical lids HENT: Atraumatic external nose and ears. Moist mucous membranes. Neck: Symmetric, trachea midline, No thyromegaly. CVS: RRR, No murmurs or gallops. Peripheral pulses 2+ and equal in all extremities RESP: Unlabored respiratory effort. Clear to auscultation bilaterally. GI: Nontender/Nondistended, No rebound or guarding. MSK:Extremities w/o deformity, Normal Active ROM Skin: Warm, Dry. No rashes or lesions. Neuro: Normal Muscle tone, No focal neurological deficits. Psych: Awake, Alert, & Oriented x3. Appears anxious Const: Vital Signs, click to edit/add: Vital Signs - 24 hr 10/31/24 15:24 Temperature 97.1 F L Pulse Rate [Pulse Oximeter] 79 Respiratory Rate 16 Blood Pressure [Ri ght Upper Arm] 134/79 Pulse Oximetry 99 Oxygen Delivery Me thod Room Air Course Vital Signs Vital signs: Initial Vital Signs Temperature 97.1 F L 10/31/24 15:24 Temperature Source Temporal Artery Scan 10/31/24 15:24 Pulse Rate 79 10/31/24 15:24 Pulse Rhythm Regular 10/31/24 15:24 Respiratory Rate 16 10/31/24 15:24 Blood Pressure 134/79 10/31/24 15:24 Blood Pressure Mean 97 10/31/24 15:24 Blood Pressure Position Sitting 10/31/24 15:24 Pulse Oximetry 99 10/31/24 15:24 Oxygen Delivery Method Room Air 10/31/24 15:24 Vital Signs Temperature 97.1 F L 10/31/24 15:24 Pulse Rate 79 10/31/24 15:24 Respiratory Rate 16 10/31/24 15:24 Blood Pressure 134/79 10/31/24 15:24 Pulse Oximetry 99 10/31/24 15:24 Oxygen Delivery Method Room Air 10/31/24 15:24 Temperature 97.1 F L 10/31/24 15:24 Pulse Rate 79 10/31/24 15:24 Respiratory Rate 16 10/31/24 15:24 Blood Pressure 134/79 10/31/24 15:24 Pulse Oximetry 99 10/31/24 15:24 Oxygen Delivery Method Room Air 10/31/24 15:24 MDM - SOB/Dyspnea MDM Narrative Medical decision making narrative: Patient is a 69-year-old female presenting for shortness of breath. The differential diagnosis of shortness of breath is broad and includes common etiologies such as COPD, asthma, pneumonia, viral syndrome, etc. More serious etiologies considered include PE, CHF, coronary artery disease, pneumothorax, aortic dissection, aortic aneurysm. Lungs sound clear they do not believe this is related to asthma. Will do a chest x-ray to look for signs of pneumonia or pneumothorax. D-dimer ordered for for signs of PE. Will also order a BNP to look for signs of CHF. She looks otherwise stable and aortic dissection and aortic aneurysm appear unlikely. EKG and troponin order for signs of coronary artery disease. Will also do CBC, BMP, magnesium, viral swabs. Symptoms all could be related to anxiety also. Patient's EKG reviewed by myself shows no acute concerning abnormalities. D-dimer within normal limits. BNP within normal limits. Lab work during the shows no acute concerning abnormalities. Chest x-ray reviewed by myself and the radiologist shows no acute concerning abnormalities. Patient states symptoms have improved while she has been waiting in the emergency department and would like to go home. This seems reasonable I do not believe repeat troponin is necessary as symptoms have been going on for several weeks. She is safe for discharge. Lab Data Labs: Lab Results 10/31/24 10/31/24 Range/Units 16:50 17:08 WBC 6.50 (4.50-11.00) K/uL RBC 3.70 L (4.00-5.20) m/uL Hgb 12.6 (12.0-16.0) gm/dL Hct 38.1 (33.0-51.0) % MCV 103 H (80-100) fL MCH 34 (26-34) pg MCHC 33 (32-36) gm/dL RDW Coeff of Luis Daniel 13.3 (11.5-15.5) % Plt Count 242 (140-440) K/uL Neut % (Auto) 46.9 (42.0-72.0) % Lymph % (Auto) 35.4 (20-44) % [place] % (Auto) 12.0 H (0.0-11.0) % Eos % (Auto) 5.1 (0.0-7.0) % Baso % (Auto) 0.6 (0.0-3.0) % Neut # (Auto) 3.05 (1.7-7.0) K/uL Lymph # (Auto) 2.30 (0.90-2.90) K/uL [place] # (Auto) 0.80 (0.00-0.90) K/UL Eos # (Auto) 0.33 (0.00-0.50) K/uL Baso # (Auto) 0.04 (0.00-0.30) K/uL Abs Immat Gran (auto) 0.00 (0.00-0.30) K/uL Imm/Tot Granulo (auto) 0.0 % D-Dimer Quant (PE/DVT) 0.16 (0.00-0.50) ug/ml Sodium 139 (135-149) mmol/L Potassium 4.1 (3.6-5.1) mmol/L Chloride 107 (96-114) mmol/L Carbon Dioxide 24 (20-32) mmol/L Anion Gap 8 (7-15) mEq/L BUN 14 (7-30) mg/dL Creatinine 0.7 (0.5-1.5) mg/dL Estimated Creat Clear 37.60 Estimated GFR 93 ml/min Glucose 92 (60-115) mg/dL Calcium 9.5 (8.4-10.6) mg/dL Magnesium 2.2 (1.5-2.6) mg/dL Troponin I < 0.01 (0.01-0.04) ng/mL NT-Pro-B Natriuret Pep 171 (See Note) pg/mL SARS-CoV-2 (PCR) Negative SARS-CoV-2 (Negative) Influenza Type A (PCR) Negative PCR FLU A (Negative) Influenza Type B (PCR) Negative PCR FLU B (Negative) RSV (PCR) Negative PCR RSV (Negative) Imaging Data Chest x-ray: Attestation: I have reviewed the pertinent imaging results. Radiologist's impression: 1. No acute cardiopulmonary process. Dictated by Luis Friend MD @ 10/31/2024 5:24:18 PM ECG Data Attestation: I personally reviewed and interpreted this ECG as follows: Prior ECG tracings: not available for review Interpretation: Normal sinus rhythm with a rate of 65 beats per minute, normal intervals, normal axis, no ST or T-wave abnormalities. Discharge Plan Discharge Clinical Impression: Shortness of breath Patient Disposition: Home, Self-Care Condition: Stable Instructions: Shortness of Breath (ED) Additional Instructions: Follow-up with the primary care provider. Return to emergency department for new or worsening symptoms. Prescriptions: No Action albuterol sulfate 90 mcg/actuation HFA aerosol inhaler 2 puff inhalation Q4-6H PRN (Reason: shortness of breath or wheezing) Qty: 6.7 0RF albuterol sulfate 2.5 mg /3 mL (0.083 %) solution for nebulization 2.5 mg inhalation Q4-6H PRN (Reason: shortness of breath or wheezing) Qty: 75 0RF budesonide-formoterol 80-4.5 mcg/actuation HFA aerosol inhaler INHALATION Patient Comments: PLEASE SEE ATTACHED FOR DETAILED DIRECTIONS levothyroxine 75 mcg tablet 75 mcg PO QAM Follow Up/Referrals: Ginger Chow PA-C [Primary Care Provider, Family Practice] Stand Alone Forms: [employer] Info Instructions
[2024-10-31 17:12] LABS: Basophils Absolute Auto 0.04 K/uL (0.00-0.30); Basophils Percent Auto 0.6 % (0.0-3.0); Eosinophils Absolute Auto 0.33 K/uL (0.00-0.50); Eosinophils Percent Auto 5.1 % (0.0-7.0); Hematocrit 38.1 % (33.0-51.0); Hemoglobin* 12.6 gm/dL (12.0-16.0); Lymphocytes Percent Auto 35.4 % (20-44); Mean Corpuscular HGB Conc 33 gm/dL (32-36); Mean Corpuscular Hemoglobin 34 pg (26-34); Mean Corpuscular Volume 103 fL (80-100); Neutrophils Absolute Auto 3.05 K/uL (1.7-7.0); Neutrophils Percent Auto 46.9 % (42.0-72.0); Platelet Count* 242 K/uL (140-440); RDW Coefficient of Variation % 13.3 % (11.5-15.5)
[2024-10-31 17:26] LABS: Chloride* 107 mmol/L (96-114); Sodium* 139 mmol/L (135-149)
[2024-10-31 17:27] LABS: Potassium* 4.1 mmol/L (3.6-5.1); Slide Review Reflex No
[2024-10-31 17:30] LABS: Anion Gap 8 mEq/L (7-15); Blood Urea Nitrogen* 14 mg/dL (7-30); Calcium* 9.5 mg/dL (8.4-10.6); Carbon Dioxide* 24 mmol/L (20-32); Creatinine* 0.7 mg/dL (0.5-1.5); Estimated Glomerular Filt Rate 93 ml/min; Glucose* 92 mg/dL (60-115); Magnesium* 2.2 mg/dL (1.5-2.6)
[2024-10-31 17:35] LABS: D Dimer Quantitative* 0.16 ug/ml (0.00-0.50)
[2024-10-31 17:36] LABS: PCR FLU A Negative PCR FLU A (Negative); PCR FLU B Negative PCR FLU B (Negative); PCR RSV Negative PCR RSV (Negative); SARS PCR* Negative SARS-CoV-2 (Negative)
[2024-10-31 17:41] LABS: NT Pro B Type NatriureticPept* 171 pg/mL (See Note)
[2024-10-31 17:44] LABS: Troponin I* < 0.01 ng/mL (0.01-0.04)
== END 2024-10-31 18:26 | disposition home or self-care (01) ==
PROVIDERS: Emergency Provider Student in an Organized Health Care Education/Training Program; PCP Physician Assistant Medical
DX: R06.02 Shortness of breath (principal)
CPT/HCPCS: 36415; 71046; 80048; 83735; 83880; 84484; 85025; 85379; 87631; 99284